=== PATIENT | female | born 1980 | race Two or more races ===

== ENCOUNTER 2017-08-02 15:23 | Observation (INO) | payer MEDICAID ==
[2017-08-02] MEDS ORDERED: Pantoprazole 40 MG Vial IVPUSH ONE (16:08)
[2017-08-02] MEDS ORDERED: Ondansetron 4 MG/2 ML SDV IVPUSH ONE (16:08)
[2017-08-02] MEDS ORDERED: Sodium Chloride 0.9% 1,000 ML IV ONE (16:08)
--- NOTE | 2017-08-02 16:10 | EDM.PDOC ---
ED HPI GENERAL MEDICAL PROBLEM - General Chief Complaint: Gastrointestinal Problem Stated Complaint: DON'T FEEL GOOD Time Seen by Provider: 08/02/17 16:10 Source of Information: Reports: Patient - History of Present Illness INITIAL COMMENTS - FREE TEXT/NARRATIVE: HISTORY AND PHYSICAL: History of present illness: [Patient presents with general malaise and loose stools since last night multiple loose watery diarrhea type stools denies blood or mucus in the stool No fever nausea vomiting chills sweats no chest pain shortness breath headache dizziness or palpitation no urine symptoms she had complained of some lightheaded/mild dizziness History of tubal ligation and cholecystectomy ] Review of systems: As per history of present illness and below otherwise all systems reviewed and negative. Past medical history: As per history of present illness and as reviewed below otherwise noncontributory. Surgical history: As per history of present illness and as reviewed below otherwise noncontributory. Social history: No reported history of drug or alcohol abuse. Family history: As per history of present illness and as reviewed below otherwise noncontributory. Physical exam: HEENT: Atraumatic, normocephalic, pupils reactive, negative for conjunctival pallor or scleral icterus, mucous membranes moist, throat clear, neck supple, nontender, trachea midline. Lungs: Clear to auscultation, breath sounds equal bilaterally, chest nontender. Heart: S1S2, regular, negative for clicks, rubs, or JVD. Abdomen: Soft, nondistended, tender in right upper quadrant as well as focus in right lower quadrant on deep palpation mild guarding no rebound Negative for masses or hepatosplenomegaly. Negative for costovertebral tenderness. Pelvis: Stable nontender. Genitourinary: Deferred. Rectal: Deferred. Extremities: Atraumatic, negative for cords or calf pain. Neurovascular unremarkable. Neuro: Awake, alert, oriented. Cranial nerves II through XII unremarkable. Cerebellum unremarkable. Motor and sensory unremarkable throughout. Exam nonfocal. Diagnostics: [CBC CMP UA hCG lipase lactic acid whole blood ]CT abdomen pelvis with contrast Therapeutics: [Normal saline bolus Zofran 8 mg IV Proton X 80 mg IV Zosyn 3.375 g IV I had considered ICU admission however Dr. Talavera is comfortable with the patient on the floor he will manage from your patient will be admitted further orders pending Dr. Talavera's evaluation ] Impression: [Hypotension Gastroenteritis Right lower quadrant pain Rule out sepsis] Definitive disposition and diagnosis as appropriate pending reevaluation and review of above. - Related Data Allergies Allergy/AdvReac Type Severity Reaction Status Date / Time No Known Allergies Allergy Verified 08/02/17 16:08 Home Meds: Home Meds . [No Known Home Meds] 08/02/17 [History] ED ROS GENERAL - Review of Systems Review Of Systems: ROS reveals no pertinent complaints other than HPI. ED EXAM, GENERAL - Physical Exam Exam: See Below Course - Vital Signs Last Recorded V/S: Last Vital Signs Temp 96.9 F 08/02/17 16:06 Pulse 75 08/02/17 16:06 Resp 18 08/02/17 16:06 BP 91/45 L 08/02/17 16:06 Pulse Ox 98 08/02/17 16:06 - Orders/Labs/Meds Orders: Active Orders 24 hr Category Date Time Status Abdomen Pelvis w Cont [CT] Stat Exams 08/02/17 16:17 Taken Chest 1V Frontal [CR] Stat Exams 08/02/17 18:27 Ordered CULTURE BLOOD [BC] Stat Lab 08/02/17 16:37 Received CULTURE BLOOD [BC] Stat Lab 08/02/17 16:52 Received CULTURE URINE [RM] Stat Lab 08/02/17 16:45 Received INFLUENZA A+B AG SCREEN [RM] Stat Lab 08/02/17 18:35 Received Blood Culture x2 Reflex Set [OM.PC] Stat Oth 08/02/17 16:13 Ordered Labs: Laboratory Tests 08/02/17 08/02/17 08/02/17 Range/Units 16:09 16:14 16:14 WBC 13.22 H (4.0-11.0) K/uL RBC 4.56 (4.30-5.90) M/uL Hgb 12.5 (12.0-16.0) g/dL Hct 38.1 (36.0-46.0) % MCV 83.6 (80.0-98.0) fL MCH 27.4 (27.0-32.0) pg MCHC 32.8 (31.0-37.0) g/dL RDW Std Deviation 42.1 (28.0-62.0) fl RDW Coeff of Thuy 14 (11.0-15.0) % Plt Count 404 H (150-400) K/uL MPV 9.30 (7.40-12.00) fL Neut % (Auto) 82.1 H (48.0-80.0) % Lymph % (Auto) 8.5 L (16.0-40.0) % [place] % (Auto) 7.6 (0.0-15.0) % Eos % (Auto) 1.7 (0.0-7.0) % Baso % (Auto) 0.1 (0.0-1.5) % Neut # (Auto) 10.9 H (1.4-5.7) K/uL Lymph # (Auto) 1.1 (0.6-2.4) K/uL [place] # (Auto) 1.0 H (0.0-0.8) K/uL Eos # (Auto) 0.2 (0.0-0.7) K/uL Baso # (Auto) 0.0 (0.0-0.1) K/uL Nucleated RBC % 0.0 /100WBC Nucleated RBCs # 0 K/uL Lactate 0.8 (0.20-2.00) mmol/L Sodium 138 (136-146) mmol/L Potassium 4.3 (3.5-5.1) mmol/L Chloride 106 (98-110) mmol/L Carbon Dioxide 21 (21-31) mmol/L BUN 14 (6.0-23.0) mg/dL Creatinine 0.8 (0.6-1.5) mg/dL Est Cr Clr Drug Dosing TNP Estimated GFR (MDRD) > 60.0 ml/min Glucose 110 (60-110) mg/dL Calcium 9.1 (8.8-10.8) mg/dL Total Bilirubin 0.6 (0.1-1.5) mg/dL AST 16 (5-40) IU/L ALT 19 (8-54) IU/L Alkaline Phosphatase 125 (40-150) Total Protein 7.8 (6.0-8.0) g/dL Albumin 4.0 (3.5-5.0) g/dL Globulin 3.8 H (2.0-3.5) g/dL Albumin/Globulin Ratio 1.1 L (1.3-2.8) Lipase 23 (7-80) U/L Urine Color Urine Appearance Urine pH (5.0-8.0) Ur Specific [place] (1.001-1.035) Urine Protein (NEGATIVE) mg/dL Urine Glucose (UA) (NEGATIVE) mg/dL Urine Ketones (NEGATIVE) mg/dL Urine Occult Blood (NEGATIVE) Urine Nitrite (NEGATIVE) Urine Bilirubin (NEGATIVE) Urine Urobilinogen (<2.0) EU/dL Ur Leukocyte Esterase (NEGATIVE) Urine RBC (0-2/HPF) Urine WBC (0-5/HPF) Ur Epithelial Cells (NONE-FEW) Urine Bacteria (NEGATIVE) Urine Mucus (NONE-MOD) Urine HCG, Qual (NEGATIVE) 08/02/17 08/02/17 Range/Units 16:45 16:45 WBC (4.0-11.0) K/uL RBC (4.30-5.90) M/uL Hgb (12.0-16.0) g/dL Hct (36.0-46.0) % MCV (80.0-98.0) fL MCH (27.0-32.0) pg MCHC (31.0-37.0) g/dL RDW Std Deviation (28.0-62.0) fl RDW Coeff of Thuy (11.0-15.0) % Plt Count (150-400) K/uL MPV (7.40-12.00) fL Neut % (Auto) (48.0-80.0) % Lymph % (Auto) (16.0-40.0) % [place] % (Auto) (0.0-15.0) % Eos % (Auto) (0.0-7.0) % Baso % (Auto) (0.0-1.5) % Neut # (Auto) (1.4-5.7) K/uL Lymph # (Auto) (0.6-2.4) K/uL [place] # (Auto) (0.0-0.8) K/uL Eos # (Auto) (0.0-0.7) K/uL Baso # (Auto) (0.0-0.1) K/uL Nucleated RBC % /100WBC Nucleated RBCs # K/uL Lactate (0.20-2.00) mmol/L Sodium (136-146) mmol/L Potassium (3.5-5.1) mmol/L Chloride (98-110) mmol/L Carbon Dioxide (21-31) mmol/L BUN (6.0-23.0) mg/dL Creatinine (0.6-1.5) mg/dL Est Cr Clr Drug Dosing Estimated GFR (MDRD) ml/min Glucose (60-110) mg/dL Calcium (8.8-10.8) mg/dL Total Bilirubin (0.1-1.5) mg/dL AST (5-40) IU/L ALT (8-54) IU/L Alkaline Phosphatase (40-150) Total Protein (6.0-8.0) g/dL Albumin (3.5-5.0) g/dL Globulin (2.0-3.5) g/dL Albumin/Globulin Ratio (1.3-2.8) Lipase (7-80) U/L Urine Color YELLOW Urine Appearance SLT CLOUDY Urine pH 5.5 (5.0-8.0) Ur Specific [place] >= 1.030 (1.001-1.035) Urine Protein TRACE (NEGATIVE) mg/dL Urine Glucose (UA) NEGATIVE (NEGATIVE) mg/dL Urine Ketones NEGATIVE (NEGATIVE) mg/dL Urine Occult Blood NEGATIVE (NEGATIVE) Urine Nitrite NEGATIVE (NEGATIVE) Urine Bilirubin NEGATIVE (NEGATIVE) Urine Urobilinogen 0.2 (<2.0) EU/dL Ur Leukocyte Esterase NEGATIVE (NEGATIVE) Urine RBC 0-2 (0-2/HPF) Urine WBC 6-9 (0-5/HPF) Ur Epithelial Cells MANY (NONE-FEW) Urine Bacteria RARE (NEGATIVE) Urine Mucus LIGHT (NONE-MOD) Urine HCG, Qual NEGATIVE (NEGATIVE) Meds: Medications Discontinued Medications Generic Name Dose Route Start Last Admin Trade Name Freq PRN Reason Stop Dose Admin Sodium Chloride 1,000 mls @ 999 mls/hr 08/02/17 16:08 08/02/17 17:15 Normal Saline IV 08/02/17 17:08 999 mls/hr STAT ONE Administration Piperacillin Sod/Tazobactam 50 mls @ 100 mls/hr 08/02/17 16:17 08/02/17 18:23 Sod 3.375 gm/ Sodium Chloride IV 08/02/17 16:46 100 mls/hr ONETIME ONE Administration Iopamidol 86 ml 08/02/17 18:15 08/02/17 18:16 Isovue Multipack-370 (76%) IVPUSH 08/02/17 18:16 86 ml ONETIME STA Administration Ondansetron HCl 8 mg 08/02/17 16:08 08/02/17 17:27 Zofran IVPUSH 08/02/17 16:09 8 mg ONETIME ONE Administration Pantoprazole Sodium 80 mg 08/02/17 16:08 08/02/17 17:27 Protonix Iv IVPUSH 08/02/17 16:09 80 mg .BOLUS ONE Administration Departure - Departure Time of Disposition: 18:41 Disposition: Home, Self-Care 01 Condition: Poor Clinical Impression: Hypotension, Gastroenteritis - Discharge Information Referrals: PCP,None [Primary Care Provider] - Forms: ED Department Discharge - My Orders Last 24 Hours: My Active Orders 08/02/17 16:13 Blood Culture x2 Reflex Set [OM.PC] Stat 08/02/17 16:17 Abdomen Pelvis w Cont [CT] Stat 08/02/17 16:37 CULTURE BLOOD [BC] Stat 08/02/17 16:45 CULTURE URINE [RM] Stat 08/02/17 16:52 CULTURE BLOOD [BC] Stat 08/02/17 18:27 Chest 1V Frontal [CR] Stat 08/02/17 18:35 INFLUENZA A+B AG SCREEN [RM] Stat - Assessment/Plan Last 24 Hours: My Active Orders 08/02/17 16:13 Blood Culture x2 Reflex Set [OM.PC] Stat 08/02/17 16:17 Abdomen Pelvis w Cont [CT] Stat 08/02/17 16:37 CULTURE BLOOD [BC] Stat 08/02/17 16:45 CULTURE URINE [RM] Stat 08/02/17 16:52 CULTURE BLOOD [BC] Stat 08/02/17 18:27 Chest 1V Frontal [CR] Stat 08/02/17 18:35 INFLUENZA A+B AG SCREEN [RM] Stat
[2017-08-02] MEDS ORDERED: Piperacillin/Tazobactam 3.375 GM in Sodium Chloride 0.9% 50 ML IV ONE (16:17)
[2017-08-02 17:06] LABS: CHLORIDE,CL 106 mmol/L (98-110); SODIUM,NA 138 mmol/L (136-146)
[2017-08-02] MEDS ORDERED: Iopamidol 755 MG/ML 500 ML Multipack Bottle IVPUSH STA (18:15)
--- NOTE | 2017-08-02 20:01 | PCM.HP ---
H&P History of Present Illness - General Date of Service: 08/02/17 Admit Problem/Dx: Admission Diagnosis/Problem Admission Diagnosis/Problem Hypotension Source of Information: Patient History Limitations: Reports: No Limitations - History of Present Illness Initial Comments - Free Text/Narative: 37-year-old female presenting to the emergency department with chief complaint of nausea and diarrhea 1 day. Patient states that last evening she began to feel somewhat nauseous and started to have some loose stools. This continued throughout the day as she reports multiple episodes of diarrhea without blood. She states that she has also been nauseous but denies any vomiting. She has had some associated chills but reports no significant fevers. States that on her way to [facility] today she continued to feel ill so had her friends take her to the emergency department for further evaluation. She currently denies any chest pain, palpitations, shortness of breath, syncopal episodes, or focal neurologic deficits. She does have some mild epigastric tenderness. She does have a history of tubal ligation and cholecystectomy. She currently takes no medications and has recently moved to [place] from [facility]. Reports no recent antibiotic use. She has no established PCP. She denies any allergies. Emergency department: Patient was found to be hypotensive with a blood pressure of 91/45 and was given a total of 2 L normal saline with some resolution of her blood pressure to 112/69. She was afebrile. CBC revealed mild leukocytosis at 13.2 K, normal lactate, and unremarkable CMP. UA was negative for nitrate and leukocyte esterase. Influenza was negative. Chest x-ray was unremarkable. 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 There was also an incidental finding of nodular infiltrate right middle lobe and left lower lobe which was recommended for a follow-up CT at some point in time in the future. As mentioned above chest x- ray was unremarkable. She was given 8 mg Zofran, 80 mg IV push Protonix and 3.375 g of Zosyn. Patient was admitted for hypotension. - Related Data Allergies/Adverse Reactions: Allergies Allergy/AdvReac Type Severity Reaction Status Date / Time No Known Allergies Allergy Verified 08/02/17 16:08 Home Medications: Home Meds . [No Known Home Meds] 08/02/17 [History] Past Medical History - Past Surgical History GI Surgical History: Reports: Cholecystectomy Female Surgical History: Reports: Tubal Ligation Social & Family History - Family History Family Medical History: Noncontributory - Tobacco Use Smoking Status *Q: Current Every Day Smoker Years of Tobacco use: 15 Packs/Tins Daily: 0.5 - Recreational Drug Use Recreational Drug Use: Yes Drug Use in Last 12 Months: Yes Recreational Drug Type: Reports: Marijuana/Hashish Recreational Drug Use Frequency: Daily H&P Review of Systems - Review of Systems: Review Of Systems: See Below General: Reports: Chills, Malaise, Weakness, Fatigue. Denies: Fever HEENT: Denies: Dysphasia, Headaches, Sinus Congestion, Sore Throat Pulmonary: Reports: Cough. Denies: Shortness of Breath, Wheezing Cardiovascular: Denies: Chest Pain, Palpitations, Edema, Lightheadedness Gastrointestinal: Reports: Abdominal Pain, Diarrhea, Nausea. Denies: Black Stool, Bloody Stool, Constipation, Vomiting Genitourinary: Denies: Dysuria, Hematuria Musculoskeletal: Denies: Neck Pain, Leg Pain Skin: Denies: Cyanosis Psychiatric: Denies: Confusion Neurological: Denies: Confusion, Dizziness, Headache Hematologic/Lymphatic: Denies: Anemia Immunologic: Denies: Anaphylaxis Exam - Exam Exam: See Below - Vital Signs Vital Signs: Last Vital Signs Temp 98.8 F 08/02/17 19:38 Pulse 79 08/02/17 19:38 Resp 16 08/02/17 19:38 BP 112/69 08/02/17 19:38 Pulse Ox 97 08/02/17 19:38 - Exam Quality Assessment: DVT Prophylaxis General: Alert, Oriented, Cooperative HEENT: Conjunctiva Clear, EACs Clear, EOMI, Hearing Intact, Mucosa Moist & [place] , Nares Patent, Normal Nasal Septum, Posterior Pharynx Clear, PERRLA Neck: Supple, Trachea Midline, 2 Lungs: Clear to Auscultation, Normal Respiratory Effort Cardiovascular: Regular Rate, Regular Rhythm GI/Abdominal Exam: Normal Bowel Sounds, Soft, Non-Tender, No Organomegaly, No Distention, No Mass, Tender (epigastric) (Female) Exam: Deferred Rectal (Female) Exam: Deferred Back Exam: Normal Inspection Extremities: Normal Inspection, Non-Tender, No Pedal Edema, Normal Capillary Refill Peripheral Pulses: 2+: Radial (L), Radial (R), Posterior Tibial (L), Posterior Tibial (R), Dorsalis Pedis (L), Dorsalis Pedis (R) Skin: Warm, Dry, Intact Neurological: Cranial Nerves Intact Neuro Extensive - Mental Status: Alert, Oriented x3, Normal Mood/Affect, Normal Cognition Neuro Extensive - Motor, Sensory, Reflexes: CN II-XII Intact Psychiatric: Alert, Normal Affect, Normal Mood - Patient Data Result Diagrams: 08/02/17 16:14 08/02/17 16:14 *Q Meaningful Use (ADM) - VTE *Q VTE Criteria *Q: - Stroke *Q Stroke Criteria *Q: - AMI *Q AMI Criteria *Q: - Problem List (1) Diarrhea SNOMED Code(s): 46409958 ICD Code: R19.7 - DIARRHEA, UNSPECIFIED Status: Acute Priority: High Current Visit: Yes Qualifiers: Diarrhea type: unspecified type Qualified Code(s): R19.7 - Diarrhea, unspecified (2) Nausea alone SNOMED Code(s): 003411510 ICD Code: R11.0 - NAUSEA Status: Acute Priority: High Current Visit: Yes (3) Gastroenteritis SNOMED Code(s): 27021794 ICD Code: K52.9 - NONINFECTIVE GASTROENTERITIS AND COLITIS, UNSPECIFIED Status: Suspected Priority: High Current Visit: Yes (4) Hypotension SNOMED Code(s): 33008575 ICD Code: I95.9 - HYPOTENSION, UNSPECIFIED Status: Resolved Priority: High Current Visit: Yes Qualifiers: Hypotension type: unspecified hypotension type Qualified Code(s): I95.9 - Hypotension, unspecified Problem List Initiated/Reviewed/Updated: Yes Assessment/Plan Comment:: 37-year-old female admitted 08/02/17 for hypotension with associated nausea and diarrhea with no significant past medical history. Hypotension: Patient has responded to IV fluid resuscitation. We will continue IVF resus with LR 175 mL per hour and monitor closely. Blood cultures were taken and are pending. She was given Zosyn in the ER. I suspect hypotension secondary to her multiple episodes of diarrhea and is more of a volume depletion. Will cover her with Levaquin secondary to CT findings however chest x -ray was negative for pneumonia. Suspect this is secondary to gastroenteritis. Mild leukocytosis most likely stress reaction as patient has been afebrile and no other systemic symptoms. Gastroenteritis/nausea/diarrhea: Most likely diagnosis secondary to her symptoms. Influenza negative. Will use Zofran and Imodium for nausea and diarrhea. She does have some epigastric tenderness most likely from this gastroenteritis. She did receive 80 mg of Protonix in the emergency department. Will continue 40 mg Protonix IV every 24 as well as give a GI cocktail. VTE: SCD, Lovenox Dispo: 1-2 days pending
[2017-08-02] MEDS ORDERED: Morphine 2 MG/ML Syringe IVPUSH PRN (20:05)
[2017-08-02] MEDS ORDERED: Ondansetron 4 MG/2 ML SDV IVPUSH PRN (20:05)
[2017-08-02] MEDS ORDERED: Alum Hydrox/Mag Hydrox/Simeth 15 ML, Metoclopramide 5 MG, Lidocaine 2% 5 ML PO ONE ×3 (20:05)
[2017-08-02] MEDS ORDERED: Ondansetron 4 MG Tab.DIS PO PRN (20:05)
[2017-08-02] MEDS ORDERED: FLU Vacc QS 2017-18 (36mos UP)/PF 60 MCG/0.5 ML Syringe IM ONE (20:45)
[2017-08-02] MEDS: Enoxaparin 40 MG/0.4 ML Syringe SUBCUT SCH (20:51)
[2017-08-02] MEDS: Levofloxacin/Dextrose 5%-Water 750 MG in Premix Bag 1 BAG IV SCH (20:52)
[2017-08-02] MEDS: Acetaminophen 325 MG Tab PO PRN (21:39)
[2017-08-02] MEDS: Temazepam 15 MG Cap PO PRN (21:40)
[2017-08-02] MEDS: Lactated Ringers 1,000 ML IV SCH (23:55)
[2017-08-03] MEDS: Lactated Ringers 1,000 ML IV SCH ×3 (06:06→17:47)
[2017-08-03 07:02] LABS: CHLORIDE,CL 110 mmol/L (98-110); SODIUM,NA 137 mmol/L (136-146)
--- NOTE | 2017-08-03 07:41 | PCM.PN ---
- General Info Date of Service: 08/03/17 Admission Dx/Problem (Free Text): Admission Diagnosis/Problem Admission Diagnosis/Problem Hypotension Subjective Update: Feeling better this morning but still very tired and having occasional diarrhea overnight but much improved. No other complaints. Functional Status: Reports: Pain Controlled, Tolerating Diet, Ambulating, Urinating - Review of Systems General: Reports: Fatigue, Malaise. Denies: Fever, Weakness, Chills HEENT: Denies: Dysphasia, Headaches, Sore Throat, Visual Changes Pulmonary: Denies: Shortness of Breath, Pleuritic Chest Pain, Cough, Sputum Cardiovascular: Denies: Chest Pain, Palpitations, Edema Gastrointestinal: Reports: Diarrhea. Denies: Abdominal Pain, Nausea, Vomiting Genitourinary: Denies: Dysuria, Hematuria Musculoskeletal: Denies: Neck Pain, Leg Pain Skin: Denies: Cyanosis Neurological: Denies: Confusion, Dizziness, Headache Psychiatric: Denies: Confusion - Patient Data Vitals - Most Recent: Last Vital Signs Temp 98.5 F 08/03/17 04:00 Pulse 77 08/03/17 04:00 Resp 16 08/03/17 04:00 BP 103/55 L 08/03/17 04:00 Pulse Ox 100 08/03/17 04:00 Weight - Most Recent: 81.902 kg I&O - Last 24 Hours: Intake & Output 08/02/17 08/03/17 08/03/17 22:59 06:59 14:59 Intake Total 150 2334 Output Total 1100 Balance 150 1234 Lab Results Last 24 Hours: Laboratory Results - last 24 hr 08/03/17 08/03/17 Range/Units 06:15 06:15 WBC 7.54 (4.0-11.0) K/uL RBC 3.72 L (4.30-5.90) M/uL Hgb 9.9 L (12.0-16.0) g/dL Hct 31.2 L (36.0-46.0) % MCV 83.9 (80.0-98.0) fL MCH 26.6 L (27.0-32.0) pg MCHC 31.7 (31.0-37.0) g/dL RDW Std Deviation 42.9 (28.0-62.0) fl RDW Coeff of Thuy 14 (11.0-15.0) % Plt Count 361 (150-400) K/uL MPV 9.60 (7.40-12.00) fL Neut % (Auto) 69.6 (48.0-80.0) % Lymph % (Auto) 17.5 (16.0-40.0) % [place] % (Auto) 10.1 (0.0-15.0) % Eos % (Auto) 2.7 (0.0-7.0) % Baso % (Auto) 0.1 (0.0-1.5) % Neut # (Auto) 5.3 (1.4-5.7) K/uL Lymph # (Auto) 1.3 (0.6-2.4) K/uL [facility] # (Auto) 0.8 (0.0-0.8) K/uL Eos # (Auto) 0.2 (0.0-0.7) K/uL Baso # (Auto) 0.0 (0.0-0.1) K/uL Nucleated RBC % 0.0 /100WBC Nucleated RBCs # 0 K/uL Sodium 137 (136-146) mmol/L Potassium 4.0 (3.5-5.1) mmol/L Chloride 110 (98-110) mmol/L Carbon Dioxide 20 L (21-31) mmol/L BUN 9 (6.0-23.0) mg/dL Creatinine 0.7 (0.6-1.5) mg/dL Est Cr Clr Drug Dosing 104.01 mL/min Estimated GFR (MDRD) > 60.0 ml/min Glucose 106 (60-110) mg/dL Calcium 8.0 L (8.8-10.8) mg/dL Magnesium 1.2 L (1.5-2.3) mEq/L Total Bilirubin 0.4 (0.1-1.5) mg/dL AST 14 (5-40) IU/L ALT 15 (8-54) IU/L Alkaline Phosphatase 107 (40-150) Total Protein 5.9 L (6.0-8.0) g/dL Albumin 3.1 L (3.5-5.0) g/dL Globulin 2.8 (2.0-3.5) g/dL Albumin/Globulin Ratio 1.1 L (1.3-2.8) Amol Results Last 24 Hours: Microbiology 02/23/18 21:10 Clostridium difficile Toxin A&B (M) - Final Stool / Feces Negative for C.Diff Toxin/AG 08/02/17 21:10 Campylobacter Antigen Assay - Final Stool / Feces Positive Campylobacter Ag Med Orders - Current: Current Medications Acetaminophen (Tylenol) 650 mg PO Q4H PRN PRN Reason: Pain (Mild 1-3)/fever Last Admin: 08/02/17 21:39 Dose: 650 mg Enoxaparin Sodium (Lovenox) 40 mg SUBCUT DAILY [facility] Last Admin: 08/02/17 20:51 Dose: 40 mg Lactated Ringer's (Ringers, Lactated) 1,000 mls @ 175 mls/hr IV ASDIRECTED [facility] Last Admin: 08/03/17 06:06 Dose: 175 mls/hr Levofloxacin/Dextrose 750 mg/ (Premix) 150 mls @ 100 mls/hr IV Q24H [facility] Last Admin: 08/02/17 20:52 Dose: 100 mls/hr Loperamide HCl (Imodium) 2 mg PO Q4H PRN PRN Reason: Diarrhea Morphine Sulfate (Morphine) 2 mg IVPUSH Q2H PRN PRN Reason: Pain (severe 7-10) Stop: 08/03/17 20:06 Ondansetron HCl (Zofran Odt) 4 mg PO Q4H PRN PRN Reason: nausea, able to take PO Ondansetron HCl (Zofran) 4 mg IVPUSH Q4H PRN PRN Reason: Nausea Pantoprazole Sodium (Protonix Iv) 40 mg IVPUSH Q24H [facility] Temazepam (Restoril) 15 mg PO BEDTIME PRN PRN Reason: Sleep Last Admin: 08/02/17 21:40 Dose: 15 mg Discontinued Medications Al Hydroxide/Mg Hydroxide 15 ml/ Metoclopramide HCl 5 mg/Lidocaine HCl 5 ml 0 ml PO ONETIME ONE Stop: 08/02/17 20:06 Last Admin: 08/02/17 21:38 Dose: 1 each Sodium Chloride (Normal Saline) 1,000 mls @ 999 mls/hr IV STAT ONE Stop: 08/02/17 17:08 Last Admin: 08/02/17 17:15 Dose: 999 mls/hr Piperacillin Sod/Tazobactam (Sod 3.375 gm/ Sodium Chloride) 50 mls @ 100 mls/ hr IV ONETIME ONE Stop: 08/02/17 16:46 Last Admin: 08/02/17 18:23 Dose: 100 mls/hr Influenza Virus Vaccine (Pharmacy To Dose - Influenza Vaccine) 1 each IM ONETIME ONE Stop: 08/02/17 20:34 Influenza Virus Vaccine (Fluarix Quad [id number]) 60 mcg IM .ONCE ONE Stop: 08/02/17 20:46 Iopamidol (Isovue Multipack-370 (76%)) 86 ml IVPUSH ONETIME STA Stop: 08/02/17 18:16 Last Admin: 08/02/17 18:16 Dose: 86 ml Ondansetron HCl (Zofran) 8 mg IVPUSH ONETIME ONE Stop: 08/02/17 16:09 Last Admin: 08/02/17 17:27 Dose: 8 mg Pantoprazole Sodium (Protonix Iv) 80 mg IVPUSH .BOLUS ONE Stop: 08/02/17 16:09 Last Admin: 08/02/17 17:27 Dose: 80 mg - Exam Quality Assessment: DVT Prophylaxis General: Alert, Oriented, Cooperative, No Acute Distress HEENT: Pupils Equal, Pupils Reactive, EOMI, Mucous Membr. Moist/[place] Neck: Supple, Trachea Midline, No JVD Lungs: Clear to Auscultation, Normal Respiratory Effort Cardiovascular: Regular Rate, Regular Rhythm GI/Abdominal Exam: Normal Bowel Sounds, Soft, Non-Tender, No Organomegaly, No Distention (Female) Exam: Deferred Back Exam: Normal Inspection Extremities: Normal Inspection, Non-Tender, No Pedal Edema, Normal Capillary Refill Peripheral Pulses: 2+: Radial (L), Radial (R), Posterior Tibial (L), Posterior Tibial (R), Dorsalis Pedis (L), Dorsalis Pedis (R) Skin: Warm, Dry, Intact Neurological: No New Focal Deficit Psy/Mental Status: Alert, Normal Affect, Normal Mood - Problem List & Annotations (1) Diarrhea SNOMED Code(s): 69395593 Code(s): R19.7 - DIARRHEA, UNSPECIFIED Status: Acute Priority: High Current Visit: Yes Qualifiers: Diarrhea type: infectious Qualified Code(s): A09 - Infectious gastroenteritis and colitis, unspecified (2) Nausea alone SNOMED Code(s): 744676347 Code(s): R11.0 - NAUSEA Status: Resolved Priority: Low Current Visit: Yes (3) Gastroenteritis SNOMED Code(s): 57822009 Code(s): K52.9 - NONINFECTIVE GASTROENTERITIS AND COLITIS, UNSPECIFIED Status: Suspected Priority: High Current Visit: Yes (4) Hypotension SNOMED Code(s): 70008228 Code(s): I95.9 - HYPOTENSION, UNSPECIFIED Status: Resolved Priority: High Current Visit: Yes Qualifiers: Hypotension type: unspecified hypotension type Qualified Code(s): I95.9 - Hypotension, unspecified (5) Campylobacter enteritis SNOMED Code(s): 97765613 Code(s): A04.5 - CAMPYLOBACTER ENTERITIS Status: Acute Priority: High Current Visit: Yes - Problem List Review Problem List Initiated/Reviewed/Updated: Yes - My Orders Last 24 Hours: My Active Orders 08/02/17 20:00 Levofloxacin/Dextrose 5%-Water [Levaquin in D5W 750 MG/150 ML] 750 mg Premix Bag 1 bag IV Q24H 08/02/17 20:02 Oxygen Therapy [RC] PRN Up With Assistance [RC] ASDIRECTED VTE/DVT Education [RC] PER UNIT ROUTINE Vital Signs [RC] Q4H Resuscitation Status Routine 08/02/17 20:03 Intake and Output [RC] QSHIFT Sequential Compression Device [OM.PC] Per Unit Routine 08/02/17 20:04 Antiembolic Devices [RC] PER UNIT ROUTINE 08/02/17 20:05 Patient Status [ADT] Routine Oxygen Therapy [RC] PRN VTE/DVT Education [RC] PER UNIT ROUTINE Vital Signs [RC] Q4H Acetaminophen [Tylenol] 650 mg PO Q4H PRN Loperamide [Imodium] 2 mg PO Q4H PRN Morphine 2 mg IVPUSH Q2H PRN Ondansetron [Zofran ODT] 4 mg PO Q4H PRN Ondansetron [Zofran] 4 mg IVPUSH Q4H PRN Temazepam [Restoril] 15 mg PO BEDTIME PRN 08/02/17 20:15 Enoxaparin [Lovenox] 40 mg SUBCUT DAILY Lactated Ringers [Ringers, Lactated] 1,000 ml IV ASDIRECTED 08/02/17 20:33 Influenza Vaccine Charge [RC] .DISCHARGE 08/02/17 21:10 CULTURE STOOL + CAMPY+SHIGATOX [RM] Stat 08/02/17 Dinner Regular Diet [DIET] 08/03/17 16:00 Pantoprazole [ProTONIX IV] 40 mg IVPUSH Q24H 08/04/17 05:11 CBC WITH AUTO DIFF [HEME] AM COMPREHENSIVE METABOLIC PN,CMP [CHEM] AM 08/05/17 05:11 CBC WITH AUTO DIFF [HEME] AM COMPREHENSIVE METABOLIC PN,CMP [CHEM] AM - Plan Plan:: 37-year-old female admitted 08/02/17 for hypotension with associated nausea and diarrhea with no significant past medical history. Hypotension: Resolved but still having some diarrhea will cont. LR at 175 until taking in PO better with less diarrhea. Blood cultures pending. Did receive one dose of Zosyn in ED. Camplobacter enteritis: Positive stool for camp. Did start Levaquin yesterday before results. Will cont. at 750mg for minimum of 3 days of treatment secondary to severity of illness causing hypotension. Will cont. Zofran and Imodium for nausea and diarrhea. Cont. Protonix for mild epigastric tenderness. Leukocytosis resolved. Patient states that she ate "chicken" the other night at home that she did not think was "good". No other people ate, only here. VTE: SCD, Lovenox Dispo: 1-2 days pending
[2017-08-03] MEDS ORDERED: Magnesium Sulfate/Water 4 GM in Premix Bag 1 BAG IV ONE (07:42)
[2017-08-03] MEDS: Enoxaparin 40 MG/0.4 ML Syringe SUBCUT SCH (08:13)
[2017-08-03] MEDS ORDERED: Pantoprazole 40 MG Vial IVPUSH SCH (16:00)
[2017-08-03] MEDS: Levofloxacin/Dextrose 5%-Water 750 MG in Premix Bag 1 BAG IV SCH (20:24)
[2017-08-03] MEDS: Loperamide 2 MG Cap PO PRN (20:25)
[2017-08-03] MEDS: Temazepam 15 MG Cap PO PRN (23:49)
[2017-08-04] MEDS: Lactated Ringers 1,000 ML IV SCH (02:28)
[2017-08-04] MEDS: Acetaminophen 325 MG Tab PO PRN (04:29)
[2017-08-04 07:36] LABS: CHLORIDE,CL 109 mmol/L (98-110); SODIUM,NA 141 mmol/L (136-146)
[2017-08-04] MEDS: Enoxaparin 40 MG/0.4 ML Syringe SUBCUT SCH (09:12)
--- NOTE | 2017-08-04 09:47 | PCM.DCSUM1 ---
Discharge Summary - Hospital Course HPI Initial Comments: 37-year-old female admitted 08/02/17 for hypotension with associated nausea and diarrhea found to be positive for Camplobacter Enteritis with no significant past medical history. Brief History: Patient stated that evening before admission she began to feel somewhat nauseous and started to have some loose stools. This continued throughout the day as she reports multiple episodes of diarrhea without blood. She stated that she had also been nauseous but denied any vomiting. She had some associated chills but reported no significant fevers. Stated that on her way to [facility]] on day of admission she continued to feel ill so had her friends take her to the emergency department for further evaluation. On initial presentation she denied any chest pain, palpitations, shortness of breath, syncopal episodes, or focal neurologic deficits. She did have some mild epigastric tenderness. She did have a history of tubal ligation and cholecystectomy. She currently takes no medications and has recently moved to [place] from [facility]. Reported no recent antibiotic use. She has no established PCP. She denied any allergies. - Discharge Data Discharge Date: 08/04/17 Discharge Disposition: Home, Self-Care 01 Condition: Good - Discharge Diagnosis/Problem(s) (1) Diarrhea SNOMED Code(s): 92863756 ICD Code: R19.7 - DIARRHEA, UNSPECIFIED Status: Resolved Priority: High Qualifiers: Diarrhea type: infectious Qualified Code(s): A09 - Infectious gastroenteritis and colitis, unspecified (2) Nausea alone SNOMED Code(s): 896007679 ICD Code: R11.0 - NAUSEA Status: Resolved Priority: Low (3) Gastroenteritis SNOMED Code(s): 75739367 ICD Code: K52.9 - NONINFECTIVE GASTROENTERITIS AND COLITIS, UNSPECIFIED Status: Suspected Priority: Low (4) Hypotension SNOMED Code(s): 50685334 ICD Code: I95.9 - HYPOTENSION, UNSPECIFIED Status: Resolved Priority: High Qualifiers: Hypotension type: unspecified hypotension type Qualified Code(s): I95.9 - Hypotension, unspecified (5) Campylobacter enteritis SNOMED Code(s): 49071539 ICD Code: A04.5 - CAMPYLOBACTER ENTERITIS Status: Acute Priority: High - Patient Instructions Diet: GI Soft/Low Residue/Low Fiber Activity: Rest and Relax Today Driving: Do Not Drive Showering/Bathing: May Shower Notify Provider of: Fever, Increased Pain, Nausea and/or Vomiting - Discharge Plan Prescriptions/Med Rec: Levofloxacin [Levaquin] 750 mg PO DAILY #1 tab Home Medications: Home Meds Levofloxacin [Levaquin] 750 mg PO DAILY #1 tab 08/04/17 [Rx] Patient Handouts: Hypotension, [id number], Soft-Food Meal Plan, Levofloxacin tablets, Low-Fiber Diet Referrals: Harinder Méndez MD [Physician] - (Please call for an appointment within this week. ) - Discharge Summary/Plan Comment DC Time >30 min.: Yes Discharge Summary/Plan Comment: 37-year-old female admitted 08/02/17 for hypotension with associated nausea and diarrhea found to be positive for Camplobacter Enteritis with no significant past medical history. Patient stated that evening before admission she began to feel somewhat nauseous and started to have some loose stools. This continued throughout the day as she reports multiple episodes of diarrhea without blood. She stated that she had also been nauseous but denied any vomiting. She had some associated chills but reported no significant fevers. Stated that on her way to [facility]3] on day of admission she continued to feel ill so had her friends take her to the emergency department for further evaluation. On initial presentation she denied any chest pain, palpitations, shortness of breath, syncopal episodes, or focal neurologic deficits. She did have some mild epigastric tenderness. She did have a history of tubal ligation and cholecystectomy. She currently takes no medications and has recently moved to [place] from [facility]. Reported no recent antibiotic use. She has no established PCP. She denied any allergies. Emergency department: Patient was found to be hypotensive with a blood pressure of 91/45 and was given a total of 2 L normal saline with some resolution of her blood pressure to 112/69. She was afebrile. CBC revealed mild leukocytosis at 13.2 K, normal lactate, and unremarkable CMP. UA was negative for nitrate and leukocyte esterase. Influenza was negative. Chest x-ray was unremarkable. 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 There was also an incidental finding of nodular infiltrate right middle lobe and left lower lobe which was recommended for a follow-up CT at some point in time in the future. As mentioned above chest x- ray was unremarkable. She was given 8 mg Zofran, 80 mg IV push Protonix and 3.375 g of Zosyn. Patient was admitted for hypotension. Patient was started on Levaquin on admission and was found to be positive for Camplobacter enteritis. She was continued on Levaquin 750 mg while inpatient and IV fluid resuscitated. On third day of admission diarrhea completely resolved and the patient was discharged in good condition with a prescription for Levaquin 1 day to complete a full 3 day course of antibiotics for her Campylobacter enteritis. She was also scheduled for a follow-up appointment with a local primary care physician. She was instructed to return in the emergency department if she had any new or worsening symptoms. - General Info Date of Service: 08/04/17 Admission Dx/Problem (Free Text: Admission Diagnosis/Problem Admission Diagnosis/Problem Hypotension Subjective Update: Patient feeling much improved. No more diarrhea. Denies any recent nausea. No fever or chills. Would like to be discharged today. Functional Status: Reports: Pain Controlled, Tolerating Diet, Ambulating, Urinating - Review of Systems General: Denies: Fever, Weakness, Fatigue, Malaise, Chills HEENT: Denies: Headaches, Visual Changes Pulmonary: Denies: Shortness of Breath, Hemoptysis Cardiovascular: Denies: Chest Pain, Palpitations, Edema Gastrointestinal: Denies: Abdominal Pain, Constipation, Diarrhea, Nausea Genitourinary: Denies: Dysuria, Hematuria Musculoskeletal: Denies: Neck Pain, Leg Pain Skin: Denies: Cyanosis Neurological: Denies: Confusion, Dizziness, Headache Psychiatric: Denies: Confusion - Patient Data Vitals - Most Recent: Last Vital Signs Temp 99.1 F 08/04/17 08:00 Pulse 89 08/04/17 08:00 Resp 18 08/04/17 08:00 BP 116/69 08/04/17 08:00 Pulse Ox 100 08/04/17 08:00 Weight - Most Recent: 81.902 kg I&O - Last 24 hours: Intake & Output 08/03/17 08/04/17 08/04/17 22:59 06:59 14:59 Intake Total 1000 Balance 1000 Lab Results - Last 24 hrs: Laboratory Results - last 24 hr 08/04/17 08/04/17 Range/Units 06:49 06:49 WBC 5.90 (4.0-11.0) K/uL RBC 3.62 L (4.30-5.90) M/uL Hgb 9.7 L (12.0-16.0) g/dL Hct 30.2 L (36.0-46.0) % MCV 83.4 (80.0-98.0) fL MCH 26.8 L (27.0-32.0) pg MCHC 32.1 (31.0-37.0) g/dL RDW Std Deviation 43.0 (28.0-62.0) fl RDW Coeff of Thuy 14 (11.0-15.0) % Plt Count 350 (150-400) K/uL MPV 9.30 (7.40-12.00) fL Neut % (Auto) 50.9 (48.0-80.0) % Lymph % (Auto) 31.9 (16.0-40.0) % Webb % (Auto) 13.9 (0.0-15.0) % Eos % (Auto) 3.1 (0.0-7.0) % Baso % (Auto) 0.2 (0.0-1.5) % Neut # (Auto) 3.0 (1.4-5.7) K/uL Lymph # (Auto) 1.9 (0.6-2.4) K/uL Webb # (Auto) 0.8 (0.0-0.8) K/uL Eos # (Auto) 0.2 (0.0-0.7) K/uL Baso # (Auto) 0.0 (0.0-0.1) K/uL Nucleated RBC % 0.0 /100WBC Nucleated RBCs # 0 K/uL Sodium 141 (136-146) mmol/L Potassium 4.0 (3.5-5.1) mmol/L Chloride 109 (98-110) mmol/L Carbon Dioxide 25 (21-31) mmol/L BUN 7 (6.0-23.0) mg/dL Creatinine 0.7 (0.6-1.5) mg/dL Est Cr Clr Drug Dosing 104.01 mL/min Estimated GFR (MDRD) > 60.0 ml/min Glucose 90 (60-110) mg/dL Calcium 8.2 L (8.8-10.8) mg/dL Total Bilirubin 0.3 (0.1-1.5) mg/dL AST 17 (5-40) IU/L ALT 18 (8-54) IU/L Alkaline Phosphatase 110 (40-150) Total Protein 5.8 L (6.0-8.0) g/dL Albumin 3.1 L (3.5-5.0) g/dL Globulin 2.7 (2.0-3.5) g/dL Albumin/Globulin Ratio 1.2 L (1.3-2.8) FRANSISCA Results - Last 24 hrs: Microbiology 08/02/17 21:10 Campylobacter Antigen Assay - Final Stool / Feces Positive Campylobacter Ag - Final NEGATIVE FOR SHIGA TOXIN 1 - Final NEGATIVE FOR SHIGA TOXIN 2 Med Orders - Current: Current Medications Acetaminophen (Tylenol) 650 mg PO Q4H PRN PRN Reason: Pain (Mild 1-3)/fever Last Admin: 08/04/17 04:29 Dose: 650 mg Enoxaparin Sodium (Lovenox) 40 mg SUBCUT DAILY [facility] Last Admin: 08/04/17 09:12 Dose: 40 mg Lactated Ringer's (Ringers, Lactated) 1,000 mls @ 175 mls/hr IV ASDIRECTED [facility] Last Admin: 08/04/17 02:28 Dose: 175 mls/hr Levofloxacin/Dextrose 750 mg/ (Premix) 150 mls @ 100 mls/hr IV Q24H [facility] Last Admin: 08/03/17 20:24 Dose: 100 mls/hr Loperamide HCl (Imodium) 2 mg PO Q4H PRN PRN Reason: Diarrhea Last Admin: 08/03/17 20:25 Dose: 2 mg Ondansetron HCl (Zofran Odt) 4 mg PO Q4H PRN PRN Reason: nausea, able to take PO Ondansetron HCl (Zofran) 4 mg IVPUSH Q4H PRN PRN Reason: Nausea Pantoprazole Sodium (Protonix Iv) 40 mg IVPUSH Q24H [facility] Last Admin: 08/03/17 16:36 Dose: 40 mg Temazepam (Restoril) 15 mg PO BEDTIME PRN PRN Reason: Sleep Last Admin: 08/03/17 23:49 Dose: 15 mg Discontinued Medications Al Hydroxide/Mg Hydroxide 15 ml/ Metoclopramide HCl 5 mg/Lidocaine HCl 5 ml 0 ml PO ONETIME ONE Stop: 08/02/17 20:06 Last Admin: 08/02/17 21:38 Dose: 1 each Sodium Chloride (Normal Saline) 1,000 mls @ 999 mls/hr IV STAT ONE Stop: 08/02/17 17:08 Last Admin: 08/02/17 17:15 Dose: 999 mls/hr Piperacillin Sod/Tazobactam (Sod 3.375 gm/ Sodium Chloride) 50 mls @ 100 mls/ hr IV ONETIME ONE Stop: 08/02/17 16:46 Last Admin: 08/02/17 18:23 Dose: 100 mls/hr Magnesium Sulfate 4 gm/ Premix 100 mls @ 25 mls/hr IV ONETIME ONE Stop: 08/03/17 11:41 Last Admin: 08/03/17 08:06 Dose: 25 mls/hr Influenza Virus Vaccine (Pharmacy To Dose - Influenza Vaccine) 1 each IM ONETIME ONE Stop: 08/02/17 20:34 Influenza Virus Vaccine (Fluarix Quad [id number]) 60 mcg IM .ONCE ONE Stop: 08/02/17 20:46 Last Admin: 08/03/17 16:48 Dose: 60 mcg Iopamidol (Isovue Multipack-370 (76%)) 86 ml IVPUSH ONETIME STA Stop: 08/02/17 18:16 Last Admin: 08/02/17 18:16 Dose: 86 ml Morphine Sulfate (Morphine) 2 mg IVPUSH Q2H PRN PRN Reason: Pain (severe 7-10) Stop: 08/03/17 20:06 Ondansetron HCl (Zofran) 8 mg IVPUSH ONETIME ONE Stop: 08/02/17 16:09 Last Admin: 08/02/17 17:27 Dose: 8 mg Pantoprazole Sodium (Protonix Iv) 80 mg IVPUSH .BOLUS ONE Stop: 08/02/17 16:09 Last Admin: 08/02/17 17:27 Dose: 80 mg - Exam Quality Assessment: Reports: DVT Prophylaxis General: Reports: Alert, Oriented, Cooperative, No Acute Distress HEENT: Reports: Pupils Equal, Pupils Reactive, EOMI, Mucous Membr. Moist/Revloc Neck: Reports: Supple, Trachea Midline, No JVD Lungs: Reports: Clear to Auscultation, Normal Respiratory Effort Cardiovascular: Reports: Regular Rate, Regular Rhythm GI/Abdominal Exam: Normal Bowel Sounds, Soft, Non-Tender, No Organomegaly, No Distention (Female) Exam: Deferred Rectal (Female) Exam: Deferred Back Exam: Reports: Normal Inspection Extremities: Normal Inspection, Non-Tender, No Pedal Edema, Normal Capillary Refill Skin: Reports: Warm, Dry, Intact Neurological: Reports: No New Focal Deficit Psy/Mental Status: Reports: Alert, Normal Affect, Normal Mood *Q Meaningful Use (DIS) - VTE *Q VTE Criteria *Q: - Stroke *Q Stroke Criteria *Q: - AMI *Q AMI Criteria *Q:
[2017-08-04] MEDS: Loperamide 2 MG Cap PO PRN (12:50)
--- NOTE | 2017-08-05 08:45 | CT ---
EXAM DATE: 08/02/17 PATIENT'S AGE: 37 Patient: GERALDINE ABBOTT Facility: [place], [place] Site . Site : 1980 Study: CT Abdomen/Pelvis [id number]/23/2018 6:19:25 PM Ordering Physician: Isaac Bailey Final Report: INDICATION: Abdominal pain; diarrhea. COMPARISON: None. TECHNIQUE: CT abdomen and pelvis with intravenous contrast; no oral contrast. FINDINGS: Minimal nodular infiltrate left lower lobe and lateral segment right middle lobe. Nodular infiltrate left lower lobe posterior to the cardiac silhouette. Followup chest CT is suggested in a month duration. No evidence of pleural effusion. Normal size cardiac silhouette without any pericardial effusion. No focal hepatic or splenic pathology. No pancreatic pathology. Status post cholecystectomy. Splenic vein, superior mesenteric vein and the portal vein are unremarkable . No adrenal pathology. No kidney stones or obstructive uropathy. Symmetric perfusion of both the kidneys. No evidence of abdominal or pelvic ascites. Normal appendix. 2.9 x 2.4 cm dermoid identified in the right ovary with presence of fat as well as calcifications. Several small cysts/follicles identified in the right adnexa. CT study of the pelvis is otherwise unremarkable. IMPRESSION: 1. No kidneys stones or obstructive uropathy. 2. Normal appendix . 3. 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 4. Nodular infiltrate right middle lobe and left lower lobe; followup chest CT in a months duration suggested. Please note that all CT scans at this facility use dose modulation, iterative reconstruction, and/or weight-based dosing when appropriate to reduce radiation dose to as low as reasonably achievable. Dictated by Diane Duron MD @ Aug 02 2017 6:21PM (Electronic Signature) Report Signed by Proxy. EMELI
--- NOTE | 2017-08-05 08:51 | CR ---
EXAM DATE: 08/02/17 PATIENT'S AGE: 37 Patient: GERALDINE ABBOTT Facility: [place], [place] Site . Site : 1980 Study: XRay Chest [id number]/23/2018 7:18:35 PM Ordering Physician: Ilan Tirado Final Report: INDICATION: pain, sob TECHNIQUE: Chest 1 view COMPARISON: None FINDINGS: Cardiovascular and mediastinum: Heart size and vasculature are normal in caliber and appearance. Mediastinum is within normal limits. Lungs and pleural space: No focal consolidation. No sign of pleural effusion. No pneumothorax. Bones and soft tissues: No significant findings. IMPRESSION: No acute cardiopulmonary disease. Dictated by Colton Mitchell MD @ 08/02/2017 7:24:51 PM Dictated by: Colton Mitchell MD @ 08/02/2017 19:24:56 (Electronic Signature) Report Signed by Proxy. [facility]ITAL[facility]ie
== END 2017-08-04 15:00 | disposition home or self-care (01) ==
LOC: MW.ED 15:23 → MW.MS 18:42
PROVIDERS: ADMIT Family Medicine; ATTEND Family Medicine
DX: A04.5 Campylobacter enteritis (principal); I95.9 Hypotension, unspecified; F17.210 Nicotine dependence, cigarettes, uncomplicated; Z98.51 Tubal ligation status; Z90.49 Acquired absence of other specified parts of digestive tract
CPT/HCPCS: 36415; 71045; 74177; 80053; 81001; 81025; 83605; 83690; 83735; 85025; 87040; 87046; 87086; 87324; 87804; 87899; 90686; 96361; 96365; 96366; 96372; 96375; 96376; 99285; A9270; C9113; G0008; G0378; J1650; J1956; J2405; J2543; J3475; J7040; J7050; J7120; Q9967; 99283

== ENCOUNTER 2019-06-18 12:45 | Emergency (ER) | payer SELFPAY ==
[2019-06-18] MEDS ORDERED: Ketorolac 60 MG/2 ML SDV IM ONE (13:33)
[2019-06-18] MEDS ORDERED: Ondansetron 4 MG Tab.DIS PO ONE (13:33)
--- NOTE | 2019-06-18 14:02 | EDM.PDOC ---
ED HPI GENERAL MEDICAL PROBLEM - General Chief Complaint: General Stated Complaint: SORE THROAT/COUGH Time Seen by Provider: 06/18/19 13:26 Source of Information: Reports: Patient History Limitations: Reports: No Limitations - History of Present Illness INITIAL COMMENTS - FREE TEXT/NARRATIVE: HISTORY AND PHYSICAL: History of present illness: Patient is a 38-year-old female who presents to the ED today with concern of cough, sore throat, headache, and nasal congestion x3 days. Patient states she has had many headaches in the past and that her headache today is not severe as a typical headache she would have. Patient states she has not taken anything today for her symptoms. Patient denies any other symptoms or concerns. Patient denies fever, chills, chest pain, shortness of breath. Denies neck stiff ness, change in vision, syncope, or near syncope. Denies nausea, vomiting , abdominal pain, diarrhea, constipation, or dysuria. Has not noted any blood in urine or stool. Patient has been eating and drinking appropriately. Review of systems: As per history of present illness and below otherwise all systems reviewed and negative. Past medical history: As per history of present illness and as reviewed below otherwise noncontributory. Surgical history: As per history of present illness and as reviewed below otherwise noncontributory. Social history: See social history for further information Family history: As per history of present illness and as reviewed below otherwise noncontributory. Physical exam: General: Patient is alert, oriented, and in no acute distress. Patient sitting comfortably on exam table. HEENT: Atraumatic, normocephalic, pupils equal and reactive bilaterally, negative for conjunctival pallor or scleral icterus, mucous membranes moist, TMs normal bilaterally, throat is mildly erythematous without exudate, tonsils are equal, uvula midline, neck supple, nontender, trachea midline. No drooling or trismus noted. No meningeal signs. No hot potato voice noted. Lungs: Clear to auscultation, breath sounds equal bilaterally, chest nontender. Heart: S1S2, regular rate and rhythm without overt murmur Abdomen: Soft, nondistended, nontender. Negative for masses or hepatosplenomegaly. Negative for costovertebral tenderness. Pelvis: Stable nontender. Genitourinary: Deferred. Rectal: Deferred. Skin: Intact, warm, dry. No lesions or rashes noted. Extremities: Atraumatic, negative for cords or calf pain. Neurovascular unremarkable. Neuro: Awake, alert, oriented. Cranial nerves II through XII unremarkable. Cerebellum unremarkable. Motor and sensory unremarkable throughout. Exam nonfocal. Notes: During the discharge process, patient does state that the only reason she came here is because she is concerned she has a sexually transmitted infection. Patient states she was just told by a sexual partner that he had an STD and she states she had recent unprotected intercourse with him. Patient states she is not sure what STD but states that that is what she came here and is concerned about today. Discussed with patient that if she desires a full STD screening she can get this done with her primary care provider or at the [facility] unit. Discussed importance for follow-up with a primary care provider. Voices understanding and is agreeable to plan of care. Denies any further questions or concerns at this time. Diagnostics: Influenza, Strep, UA, Gonorrhea and Chlamydia Therapeutics: Toradol, Zofran, Azithromycin, Rocephin Prescription: Macrobid Impression: Flu-like symptoms Urinary Tract Infection High risk sexual activity Plan: 1. You can alternate ibuprofen and Tylenol as directed for pain and discomfort. Take medication as prescribed. 2. Follow-up with your primary care provider as discussed. Return to the ED as needed and as discussed. 3. If you desire full STD screening, this can be done with your primary care provider or at the [facility] unit. Definitive disposition and diagnosis as appropriate pending reevaluation and review of above. Head Pain Score (Numeric/FACES): 7 - Related Data Allergies Allergy/AdvReac Type Severity Reaction Status Date / Time No Known Allergies Allergy Verified 06/18/19 13:02 Home Meds: Home Meds . [No Known Home Meds] 06/18/19 [History] Past Medical History - Past Health History Medical/Surgical History: Denies Medical/Surgical History Genitourinary History: Reports: UTI, Recurrent - Infectious Disease History Infectious Disease History: Reports: None - Past Surgical History GI Surgical History: Reports: Cholecystectomy Female Surgical History: Reports: Tubal Ligation Social & Family History - Family History Family Medical History: Noncontributory - Tobacco Use Smoking Status *Q: Current Every Day Smoker Years of Tobacco use: 3 Packs/Tins Daily: 1 - Caffeine Use Caffeine Use: Reports: Coffee, Energy Drinks, Soda, Tea - Recreational Drug Use Recreational Drug Use: Yes Recreational Drug Type: Reports: Marijuana/Hashish Recreational Drug Use Frequency: Socially ED ROS GENERAL - Review of Systems Review Of Systems: Comprehensive ROS is negative, except as noted in HPI. ED EXAM, GENERAL - Physical Exam Exam: See Below (see dictation) Course - Vital Signs Last Recorded V/S: Last Vital Signs Temp 98.0 F 06/18/19 13:03 Pulse 102 H 06/18/19 13:03 Resp 20 06/18/19 13:03 BP 116/63 06/18/19 13:03 Pulse Ox 98 06/18/19 13:03 - Orders/Labs/Meds Orders: Active Orders 24 hr Category Date Time Status CHLAMYDIA AND GONORRHEA BY TMA Stat Lab 06/18/19 13:19 Received CULTURE STREP A CONFIRMATION [] Stat Lab 06/18/19 13:09 Results CULTURE URINE [] Stat Lab 06/18/19 13:19 Received STREP SCRN A RAPID W CULT CONF [] Stat Lab 06/18/19 13:09 Results Labs: Laboratory Tests 06/18/19 Range/Units 13:19 Urine Color YELLOW Urine Appearance SLT CLOUDY Urine pH 6.0 (5.0-8.0) Ur Specific [place] >= 1.030 (1.001-1.035) Urine Protein NEGATIVE (NEGATIVE) mg/dL Urine Glucose (UA) NEGATIVE (NEGATIVE) mg/dL Urine Ketones NEGATIVE (NEGATIVE) mg/dL Urine Occult Blood NEGATIVE (NEGATIVE) Urine Nitrite POSITIVE H (NEGATIVE) Urine Bilirubin NEGATIVE (NEGATIVE) Urine Urobilinogen 0.2 (<2.0) EU/dL Ur Leukocyte Esterase NEGATIVE (NEGATIVE) Urine RBC 0-1 (0-2/HPF) Urine WBC 1-3 (0-5/HPF) Ur Epithelial Cells MANY (NONE-FEW) Calcium Oxalate Crystal MODERATE (NEGATIVE) Urine Bacteria 2+ H (NEGATIVE) Meds: Medications Discontinued Medications Generic Name Dose Route Start Last Admin Trade Name Freq PRN Reason Stop Dose Admin Azithromycin 1,000 mg 06/18/19 14:12 06/18/19 14:51 Zithromax PO 06/18/19 14:13 1,000 mg NOW STA Administration Ceftriaxone Sodium 250 mg/ 1 mls @ 1 mls/sec 06/18/19 14:13 06/18/19 14:52 Lidocaine HCl IM 06/18/19 14:14 1 mls/sec ONETIME ONE Administration Ketorolac Tromethamine 60 mg 06/18/19 13:33 06/18/19 14:03 Toradol IM 06/18/19 13:34 60 mg ONETIME ONE Administration Ondansetron HCl 4 mg 06/18/19 13:33 06/18/19 14:03 Zofran Odt PO 06/18/19 13:34 4 mg ONETIME ONE Administration Departure - Departure Time of Disposition: 15:08 Disposition: Home, Self-Care 01 Clinical Impression: Flu-like symptoms High risk sexual behavior Qualifiers: High risk sexual behavior type: unspecified Qualified Code(s): Z72.51 - High risk heterosexual behavior Urinary tract infection Qualifiers: Urinary tract infection type: acute cystitis Hematuria presence: without hematuria Qualified Code(s): N30.00 - Acute cystitis without hematuria - Discharge Information Referrals: PCP,None [Primary Care Provider] - Forms: ED Department Discharge Additional Instructions: The following information is given to patients seen in the emergency department who are being discharged to home. This information is to outline your options for follow-up care. We provide all patients seen in our emergency department with a follow-up referral. The need for follow-up, as well as the timing and circumstances, are variable depending upon the specifics of your emergency department visit. If you don't have a primary care physician on staff, we will provide you with a referral. We always advise you to contact your personal physician following an emergency department visit to inform them of the circumstance of the visit and for follow-up with them and/or the need for any referrals to a consulting specialist. The emergency department will also refer you to a specialist when appropriate. This referral assures that you have the opportunity for follow-up care with a specialist. All of these measure are taken in an effort to provide you with optimal care, which includes your follow-up. Under all circumstances we always encourage you to contact your private physician who remains a resource for coordinating your care. When calling for follow-up care, please make the office aware that this follow-up is from your recent emergency room visit. If for any reason you are refused follow-up, please contact the [facility] Emergency Department at and asked to speak to the emergency department charge nurse. JONG [facility] [address] [place] [address] [facility] [address] [place] [address] 1. You can alternate ibuprofen and Tylenol as directed for pain and discomfort. Take medication as prescribed. 2. Follow-up with your primary care provider as discussed. Return to the ED as needed and as discussed. 3. If you desire full STD screening, this can be done with your primary care provider or at the [facility] unit. Sepsis Event Note - Evaluation Sepsis Screening Result: No Definite Risk - Focused Exam Vital Signs: Vital Signs Temp Pulse Resp BP Pulse Ox 06/18/19 13:03 98.0 F 102 H 20 116/63 98 Date Exam was Performed: 06/18/19 Time Exam was Performed: 15:08 - My Orders Last 24 Hours: My Active Orders 06/18/19 13:09 CULTURE STREP A CONFIRMATION [RM] Stat STREP SCRN A RAPID W CULT CONF [RM] Stat 06/18/19 13:19 CHLAMYDIA AND GONORRHEA BY TMA Stat CULTURE URINE [RM] Stat - Assessment/Plan Last 24 Hours: My Active Orders 06/18/19 13:09 CULTURE STREP A CONFIRMATION [RM] Stat STREP SCRN A RAPID W CULT CONF [RM] Stat 06/18/19 13:19 CHLAMYDIA AND GONORRHEA BY TMA Stat CULTURE URINE [RM] Stat
[2019-06-18] MEDS ORDERED: Azithromycin 250 MG Tab PO STA (14:12)
[2019-06-18] MEDS ORDERED: cefTRIAXone 250 MG in Lidocaine 1% 1 ML IM ONE (14:13)
== END 2019-06-18 15:24 | disposition home or self-care (01) ==
LOC: MW.ED 12:45
DX: J02.9 Acute pharyngitis, unspecified (principal); R05 Cough; N30.00 Acute cystitis without hematuria; F17.210 Nicotine dependence, cigarettes, uncomplicated; Z72.51 High risk heterosexual behavior
CPT/HCPCS: 81001; 87081; 87086; 87491; 87591; 87804; 87880; 96372; 99283; A9270; J0696; J1885; J2001

== ENCOUNTER 2020-01-21 18:24 | Emergency (ER) | payer MEDICAID, OTHER ==
[2020-01-21] MEDS ORDERED: Sodium Chloride 0.9% 10 ML Syringe FLUSH PRN (19:51)
[2020-01-21] MEDS ORDERED: Sodium Chloride 0.9% 2.5 ML Syringe FLUSH PRN (19:51)
[2020-01-21] MEDS ORDERED: Sodium Chloride 0.9% 1,000 ML IV ONE (19:51)
[2020-01-21] MEDS ORDERED: Ondansetron 4 MG/2 ML SDV IVPUSH ONE (19:53)
[2020-01-21] MEDS ORDERED: Ketorolac 30 MG/ML SDV IVPUSH ONE (19:53)
[2020-01-21 20:52] LABS: BLOOD UREA NITROGEN,BUN 11 mg/dL (7.0-18.0); CARBON DIOXIDE,CO2 28.1 mmol/L (21.0-32.0); CHLORIDE,CL 103 mmol/L (98-107); GLUCOSE RANDOM 92 mg/dL (74-106); SODIUM,NA 140 mmol/L (136-145)
--- NOTE | 2020-01-21 21:09 | CR ---
Abdominal series: Frontal view of the chest was obtained as well as supine and upright views of the abdomen. Comparison: Prior chest x-ray of 08/02/17. Heart size and mediastinum are within normal limits. Lungs are clear with no acute parenchymal change. Slight increased stool is noted throughout the colon. Bowel gas pattern is otherwise unremarkable. Calcifications are seen within the pelvis most likely representing phleboliths. Surgical clips are seen from previous cholecystectomy. Minimal scoliosis is noted within the spine. Impression: 1. Slight increased stool within colon. 2. Other findings believed to be nonacute. Diagnostic code #2 Study was dictated in MDT
--- NOTE | 2020-01-21 21:22 | EDM.PDOC ---
ED HPI GENERAL MEDICAL PROBLEM - General Chief Complaint: Back Pain or Injury Stated Complaint: BACKED UP, LOWER BACK AND ABDOMINAL PAIN Time Seen by Provider: 01/21/20 18:30 - History of Present Illness INITIAL COMMENTS - FREE TEXT/NARRATIVE: HISTORY AND PHYSICAL: History of present illness: This is a 39-year-old female with a history significant for constipation and kidney problems in the past who presents the ER today secondary to nausea and lower back pain. Patient also describes some lower abdominal discomfort and feels like she is constipated again. Patient reports that her last bowel movement was actually today but it was extremely hard. Patient denies any fevers, shakes, chills, vomiting, diarrhea. Patient reports that she has had nausea and constipation. Patient complains of lower abdominal discomfort bi laterally. Patient denies any dysuria frequency urgency. Patient has not hematuria. Patient reports that she did have a small amount of bright red blood in her stool after straining heavily to move her bowels today. Patient reports that she has been tolerating p.o. solids and liquids well and is concerned because she is not able to get any satiety. Patient reports that she has been taking flaxseed in order to help her constipation without any significant relief. Review of systems: As per history of present illness and below otherwise all systems reviewed and negative. Past medical history: As per history of present illness and as reviewed below otherwise noncontributory. Surgical history: As per history of present illness and as reviewed below otherwise noncontributory. Social history: No reported history of drug or alcohol abuse. Family history: As per history of present illness and as reviewed below otherwise noncontributory. Physical exam: Constitutional: Patient is oriented to person, place, and time. Appears well- developed and well-nourished. No distress. HEENT: Moist mucous membranes., Neck supple, no nuchal rigidity, no photophobia, no Kernig's sign or Brudzinski sign, patient does not present with signs or symptoms of be consistent with meningitis. Head: Normocephalic and atraumatic Eyes: Right eye exhibits no discharge. Left eye exhibits no discharge. No scleral icterus Neck: Normal range of motion. No tracheal deviation present. Cardiovascular: Normal rate and regular rhythm. Pulmonary: Effort normal, no respiratory distress. Abd: Soft, nondistended, no rebound/guarding, no psoas or obturator signs, no tenderness at Mcberney's point, no Thomas's sign. Pt does not present with an exam that would be consistent with an acute surgical abdomen at this time. Mild tenderness to palpation suprapubic region. Musculoskeletal: Normal range of motion. Mild tenderness palpation the bilateral lower back. No point C-spine T-spine or L-spine tenderness to palpation Neurologic: Alert and oriented to person, place and time. Motor 5 out of 5, sensation intact light touch and pinprick. Patient ambulating with any difficulty. Skin: Huey, warm and dry. Psychiatric: Normal mood and affect. Behavior is normal. Judgment and thought content normal. Nursing note and vital signs have been reviewed Diagnostics: CBC/CMP within normal limits. Urinalysis unremarkable. Obstruction series reveals mild constipation as interpreted by radiology Therapeutics: FROILAN Delatorre Assessment and plan: 39-year-old female who presents the ER today secondary to constipation and abdominal pain. Patient's ER work-up did not reveal any acute source of her abdominal discomfort. Patient does have a history of constipation and her x-ray today reveals increased stool load. Patient will be discharged home with instructions to get Dulcolax/Colace [id number] and to increase her fruit and fiber intake. Patient be instructed to make an appointment to follow-up with her family doctor within the next 1 to 2 days for reevaluation. - Related Data Allergies Allergy/AdvReac Type Severity Reaction Status Date / Time No Known Allergies Allergy Verified 01/21/20 19:37 Home Meds: Home Meds Docusate Sodium [Colace] 100 mg PO BID #30 cap 01/21/20 [Rx] Ondansetron [Zofran ODT] 4 mg PO Q6H PRN #12 tab.dis 01/21/20 [Rx] Past Medical History - Past Health History Medical/Surgical History: Denies Medical/Surgical History Gastrointestinal History: Reports: None Genitourinary History: Reports: UTI, Recurrent HEART SPECIALIST History: Reports: Psychiatric History: Reports: Anxiety, Depression, PTSD - Infectious Disease History Infectious Disease History: Reports: None - Past Surgical History GI Surgical History: Reports: Cholecystectomy Female Surgical History: Reports: Tubal Ligation Social & Family History - Family History Family Medical History: Noncontributory - Tobacco Use Smoking Status *Q: Current Every Day Smoker Years of Tobacco use: 20 Packs/Tins Daily: 0.5 - Caffeine Use Caffeine Use: Reports: Coffee - Recreational Drug Use Recreational Drug Use: Yes Recreational Drug Type: Reports: Marijuana/Hashish Recreational Drug Use Frequency: Weekly ED ROS GENERAL - Review of Systems Review Of Systems: Comprehensive ROS is negative, except as noted in HPI. ED EXAM, GENERAL - Physical Exam Exam: See Below Course - Vital Signs Last Recorded V/S: Last Vital Signs Temp 96.5 F L 01/21/20 19:32 Pulse 74 01/21/20 20:46 Resp 20 01/21/20 20:46 BP 110/71 01/21/20 20:46 Pulse Ox 98 01/21/20 20:46 - Orders/Labs/Meds Orders: Active Orders 24 hr Category Date Time Status Sodium Chloride 0.9% [Saline Flush] Med 01/21/20 19:51 Active 10 ml FLUSH ASDIRECTED PRN Sodium Chloride 0.9% [Saline Flush] Med 01/21/20 19:51 Active 2.5 ml FLUSH ASDIRECTED PRN Saline Lock Insert [OM.PC] Stat Oth 01/21/20 19:51 Ordered Medication Orders Sodium Chloride (Saline Flush) 10 ml FLUSH ASDIRECTED PRN PRN Reason: Keep Vein Open Last Admin: 01/21/20 20:16 Dose: 10 ml Documented by: TITO Sodium Chloride (Saline Flush) 2.5 ml FLUSH ASDIRECTED PRN PRN Reason: Keep Vein Open Last Admin: 01/21/20 20:16 Dose: 2.5 ml Documented by: TITO Labs: Laboratory Tests 01/21/20 01/21/20 01/21/20 Range/Units 19:46 19:46 20:11 WBC 10.35 (4.0-11.0) K/uL RBC 4.64 (4.30-5.90) M/uL Hgb 12.5 (12.0-16.0) g/dL Hct 39.4 (36.0-46.0) % MCV 84.9 (80.0-98.0) fL MCH 26.9 L (27.0-32.0) pg MCHC 31.7 (31.0-37.0) g/dL RDW Std Deviation 47.3 (28.0-62.0) fl RDW Coeff of Thuy 15 (11.0-15.0) % Plt Count 356 (150-400) K/uL MPV 10.10 (7.40-12.00) fL Neut % (Auto) 60.0 (48.0-80.0) % Lymph % (Auto) 30.3 (16.0-40.0) % Thayer % (Auto) 8.3 (0.0-15.0) % Eos % (Auto) 1.2 (0.0-7.0) % Baso % (Auto) 0.2 (0.0-1.5) % Neut # (Auto) 6.2 H (1.4-5.7) K/uL Lymph # (Auto) 3.1 H (0.6-2.4) K/uL Thayer # (Auto) 0.9 H (0.0-0.8) K/uL Eos # (Auto) 0.1 (0.0-0.7) K/uL Baso # (Auto) 0.0 (0.0-0.1) K/uL Nucleated RBC % 0.0 /100WBC Nucleated RBCs # 0 K/uL Sodium (136-145) mmol/L Potassium (3.5-5.1) mmol/L Chloride (98-107) mmol/L Carbon Dioxide (21.0-32.0) mmol/L BUN (7.0-18.0) mg/dL Creatinine (0.6-1.0) mg/dL Est Cr Clr Drug Dosing Estimated GFR (MDRD) ml/min Glucose (74-106) mg/dL Calcium (8.5-10.1) mg/dL Total Bilirubin (0.2-1.0) mg/dL AST (15-37) IU/L ALT (14-63) IU/L Alkaline Phosphatase (46-116) U/L Total Protein (6.4-8.2) g/dL Albumin (3.4-5.0) g/dL Globulin (2.6-4.0) g/dL Albumin/Globulin Ratio (0.9-1.6) Urine Color YELLOW Urine Appearance SLT CLOUDY Urine pH 6.0 (5.0-8.0) Ur Specific Kent 1.025 (1.001-1.035) Urine Protein NEGATIVE (NEGATIVE) mg/dL Urine Glucose (UA) NEGATIVE (NEGATIVE) mg/dL Urine Ketones NEGATIVE (NEGATIVE) mg/dL Urine Occult Blood SMALL H (NEGATIVE) Urine Nitrite NEGATIVE (NEGATIVE) Urine Bilirubin NEGATIVE (NEGATIVE) Urine Urobilinogen 0.2 (<2.0) EU/dL Ur Leukocyte Esterase NEGATIVE (NEGATIVE) Urine RBC 0-2 (0-2/HPF) Urine WBC 0-1 (0-5/HPF) Ur Epithelial Cells FEW (NONE-FEW) Urine Bacteria 1+ H (NEGATIVE) Urine Mucus LIGHT (NONE-MOD) Urine HCG, Qual NEGATIVE (NEGATIVE) 01/21/20 Range/Units 20:11 WBC (4.0-11.0) K/uL RBC (4.30-5.90) M/uL Hgb (12.0-16.0) g/dL Hct (36.0-46.0) % MCV (80.0-98.0) fL MCH (27.0-32.0) pg MCHC (31.0-37.0) g/dL RDW Std Deviation (28.0-62.0) fl RDW Coeff of Thuy (11.0-15.0) % Plt Count (150-400) K/uL MPV (7.40-12.00) fL Neut % (Auto) (48.0-80.0) % Lymph % (Auto) (16.0-40.0) % Thayer % (Auto) (0.0-15.0) % Eos % (Auto) (0.0-7.0) % Baso % (Auto) (0.0-1.5) % Neut # (Auto) (1.4-5.7) K/uL Lymph # (Auto) (0.6-2.4) K/uL Thayer # (Auto) (0.0-0.8) K/uL Eos # (Auto) (0.0-0.7) K/uL Baso # (Auto) (0.0-0.1) K/uL Nucleated RBC % /100WBC Nucleated RBCs # K/uL Sodium 140 (136-145) mmol/L Potassium 4.0 (3.5-5.1) mmol/L Chloride 103 (98-107) mmol/L Carbon Dioxide 28.1 (21.0-32.0) mmol/L BUN 11 (7.0-18.0) mg/dL Creatinine 0.9 (0.6-1.0) mg/dL Est Cr Clr Drug Dosing TNP Estimated GFR (MDRD) > 60.0 ml/min Glucose 92 (74-106) mg/dL Calcium 8.5 (8.5-10.1) mg/dL Total Bilirubin 0.4 (0.2-1.0) mg/dL AST 14 L (15-37) IU/L ALT 24 (14-63) IU/L Alkaline Phosphatase 126 H (46-116) U/L Total Protein 8.3 H (6.4-8.2) g/dL Albumin 4.0 (3.4-5.0) g/dL Globulin 4.3 H (2.6-4.0) g/dL Albumin/Globulin Ratio 0.9 (0.9-1.6) Urine Color Urine Appearance Urine pH (5.0-8.0) Ur Specific Kent (1.001-1.035) Urine Protein (NEGATIVE) mg/dL Urine Glucose (UA) (NEGATIVE) mg/dL Urine Ketones (NEGATIVE) mg/dL Urine Occult Blood (NEGATIVE) Urine Nitrite (NEGATIVE) Urine Bilirubin (NEGATIVE) Urine Urobilinogen (<2.0) EU/dL Ur Leukocyte Esterase (NEGATIVE) Urine RBC (0-2/HPF) Urine WBC (0-5/HPF) Ur Epithelial Cells (NONE-FEW) Urine Bacteria (NEGATIVE) Urine Mucus (NONE-MOD) Urine HCG, Qual (NEGATIVE) Meds: Medications Generic Name Dose Route Start Last Admin Trade Name Freq PRN Reason Stop Dose Admin Sodium Chloride 10 ml 01/21/20 19:51 01/21/20 20:16 Saline Flush FLUSH 10 ml ASDIRECTED PRN Administration Keep Vein Open Sodium Chloride 2.5 ml 01/21/20 19:51 01/21/20 20:16 Saline Flush FLUSH 2.5 ml ASDIRECTED PRN Administration Keep Vein Open Discontinued Medications Generic Name Dose Route Start Last Admin Trade Name Freq PRN Reason Stop Dose Admin Sodium Chloride 1,000 mls @ 999 mls/hr 01/21/20 19:51 01/21/20 20:12 Normal Saline IV 01/21/20 20:51 999 mls/hr .Bolus ONE Administration Ketorolac Tromethamine 30 mg 01/21/20 19:53 01/21/20 20:13 Toradol IVPUSH 01/21/20 19:54 30 mg ONETIME ONE Administration Ondansetron HCl 4 mg 01/21/20 19:53 01/21/20 20:13 Zofran IVPUSH 01/21/20 19:54 4 mg ONETIME ONE Administration Departure - Departure Time of Disposition: 21:21 Disposition: Home, Self-Care 01 Condition: Good Clinical Impression: Abdominal pain, Constipation - Discharge Information Instructions: Constipation, Adult, Abdominal Pain, Adult Referrals: PCP,None [Primary Care Provider] - Additional Instructions: Your ER work-up today was unremarkable except for evidence of constipation on your obstruction series. You have been given a prescription for Colace to take twice a day to assist you with moving her bowels. You were also given a pre scription of Zofran to assist you with your nausea. Please make an appointment to see your family doctor within the week to be reevaluated. [facility] - Internal Medicine [address] [place] [address] The following information is given to patients seen in the emergency department who are being discharged to home. This information is to outline your options for follow-up care. We provide all patients seen in our emergency department with a follow-up referral. The need for follow-up, as well as the timing and circumstances, are variable depending upon the specifics of your emergency department visit. If you don't have a primary care physician on staff, we will provide you with a referral. We always advise you to contact your personal physician following an emergency department visit to inform them of the circumstance of the visit and for follow-up with them and/or the need for any referrals to a consulting specialist. The emergency department will also refer you to a specialist when appropriate. This referral assures that you have the opportunity for follow-up care with a specialist. All of these measure are taken in an effort to provide you with optimal care, which includes your follow-up. Under all circumstances we always encourage you to contact your private physician who remains a resource for coordinating your care. When calling for follow-up care, please make the office aware that this follow-up is from your recent emergency room visit. If for any reason you are refused follow-up, please contact the [facility] Emergency Department at and asked to speak to the emergency department charge nurse. Sepsis Event Note (ED) - Evaluation Sepsis Screening Result: No Definite Risk - Focused Exam Vital Signs: Vital Signs Temp Pulse Resp BP Pulse Ox 01/21/20 20:46 74 20 110/71 98 01/21/20 19:32 96.5 F L 74 17 110/71 98 - My Orders Last 24 Hours: My Active Orders 01/21/20 19:51 Sodium Chloride 0.9% [Saline Flush] 10 ml FLUSH ASDIRECTED PRN Sodium Chloride 0.9% [Saline Flush] 2.5 ml FLUSH ASDIRECTED PRN Saline Lock Insert [OM.PC] Stat - Assessment/Plan Last 24 Hours: My Active Orders 01/21/20 19:51 Sodium Chloride 0.9% [Saline Flush] 10 ml FLUSH ASDIRECTED PRN Sodium Chloride 0.9% [Saline Flush] 2.5 ml FLUSH ASDIRECTED PRN Saline Lock Insert [OM.PC] Stat
== END 2020-01-21 21:40 | disposition home or self-care (01) ==
LOC: MW.ED 18:24
DX: K59.00 Constipation, unspecified (principal); F17.210 Nicotine dependence, cigarettes, uncomplicated
CPT/HCPCS: 36415; 74022; 80053; 81001; 81025; 85025; 96374; 96375; 99283; J1885; J2405; J7030

== ENCOUNTER 2020-01-22 06:04 | Emergency (ER) | payer SELFPAY ==
[2020-01-22] MEDS ORDERED: Sodium Chloride 0.9% 2.5 ML Syringe FLUSH PRN (06:33)
[2020-01-22] MEDS ORDERED: Sodium Chloride 0.9% 10 ML Syringe FLUSH PRN (06:33)
[2020-01-22] MEDS ORDERED: Ondansetron 4 MG/2 ML SDV IVPUSH ONE (06:33)
[2020-01-22] MEDS ORDERED: Sodium Chloride 0.9% 1,000 ML IV ONE (06:33)
--- NOTE | 2020-01-22 06:43 | EDM.PDOC ---
<Burton Rai - Last Filed: 01/22/20 07:21> ED HPI GENERAL MEDICAL PROBLEM - General Chief Complaint: Abdominal Pain Stated Complaint: ABDOMINAL PAIN, NAUSEATED Time Seen by Provider: 01/22/20 06:37 - History of Present Illness INITIAL COMMENTS - FREE TEXT/NARRATIVE: HISTORY AND PHYSICAL: History of present illness: This is a 39-year-old female who presents the ER today secondary to not feeling well. Patient was seen and evaluated in the ER yesterday and was diagnosed with abdominal pain and constipation. Patient reports that the pain that she is experiencing now is completely different than the pain that brought her to the ER earlier yesterday. Patient reports "I think I got poisoned by the food that I could ". Patient reports that she cooked canned beef that she obtained from a food bank yesterday. Patient reports shortly after eating it she started feeling cold and hot and felt like her skin was sunburned. She reports that she started having abdominal cramping with associated acid reflux and she reports she has been belching ever since. Patient denies any fevers, shakes, chills. Patient reports that she is had nausea but no vomiting or diarrhea. Patient reports she still has not moved her bowels since she went home. Patient denies any cough or URI symptoms. Patient denies any dysuria frequency urgency. Patient reports that she has been moving flatus. Patient denies any history of hypertension, diabetes, liver, lung, kidney problems. Patient is status post cholecystectomy. 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 Patient denies any alcohol or drug. Patient admits to tobacco use. No known drug allergies Review of systems: As per history of present illness and below otherwise all systems reviewed and negative. Past medical history: As per history of present illness and as reviewed below otherwise noncontributory. Surgical history: As per history of present illness and as reviewed below otherwise noncontributory. Social history: No reported history of drug or alcohol abuse. Family history: As per history of present illness and as reviewed below otherwise noncontributory. Physical exam: This is a well-developed well-nourished 39-year-old female who is resting comfortably on the stretcher and appears to be in no acute distress. Constitutional: Patient is oriented to person, place, and time. Appears well- developed and well-nourished. No distress. HEENT: Moist mucous membranes Head: Normocephalic and atraumatic Eyes: Right eye exhibits no discharge. Left eye exhibits no discharge. No scleral icterus Neck: Normal range of motion. No tracheal deviation present. Cardiovascular: Normal rate and regular rhythm. Pulmonary: Effort normal, no respiratory distress. Abd: Soft, nondistended, no rebound/guarding, no psoas or obturator signs, no tenderness at Mcberney's point, no Thomas's sign. Pt does not present with an exam that would be consistent with an acute surgical abdomen at this time. Mild diffuse tenderness in the midepigastric region Musculoskeletal: Normal range of motion Neurologic: Alert and oriented to person, place and time. Skin: [place], warm and dry. Psychiatric: Normal mood and affect. Behavior is normal. Judgment and thought content normal. Nursing note and vital signs have been reviewed Diagnostics: CBC/CMP/lipase CT abdomen pelvis Therapeutics: Zofran/GI cocktail/NSS Assessment and plan: This is a 39-year-old female who presents ER today with concerns of reaction to food that she had eaten earlier this evening for dinner. Patient reports shortly after eating canned beef she started having symptoms consistent with nausea, acid reflux, bulging, hot and cold sweats, sensation kumar t her skin was burning. In the ER, the patient is clinically and hemodynamically stable and her exam is not consistent with an acute surgical abdomen. Given that this is her second visit to the ER for abdominal pain, although this is different discomfort that she had during her initial visit, I will order a CT scan of the abdomen pelvis to assure that the pain of the discomfort from the earlier visit and this visit are not related. Patient will be given Zofran and a GI cocktail to assist with her symptoms and will be given a liter of normal saline while awaiting the CT scan. 7 AM: Care signed out to Dr. Tamez. abdomen Pain Score (Numeric/FACES): 8 - Related Data Allergies Allergy/AdvReac Type Severity Reaction Status Date / Time No Known Allergies Allergy Verified 01/21/20 19:37 Home Meds: Home Meds Docusate Sodium [Colace] 100 mg PO BID #30 cap 01/21/20 [Rx] Ondansetron [Zofran ODT] 4 mg PO Q6H PRN #12 tab.dis 01/21/20 [Rx] Past Medical History - Past Health History Medical/Surgical History: Denies Medical/Surgical History Gastrointestinal History: Reports: None Genitourinary History: Reports: UTI, Recurrent [facility] History: Reports: Psychiatric History: Reports: Anxiety, Depression, PTSD - Infectious Disease History Infectious Disease History: Reports: None - Past Surgical History GI Surgical History: Reports: Cholecystectomy Female Surgical History: Reports: Tubal Ligation Social & Family History - Family History Family Medical History: Noncontributory - Caffeine Use Caffeine Use: Reports: Coffee ED ROS GENERAL - Review of Systems Review Of Systems: Comprehensive ROS is negative, except as noted in HPI. ED EXAM, GENERAL - Physical Exam Exam: See Below Departure - Departure Time of Disposition: 07:20 Disposition: Home, Self-Care 01 Clinical Impression: Food poisoning, Dermoid cyst, Dermoid cyst of right ovary Abdominal pain Qualifiers: Abdominal location: epigastric Qualified Code(s): R10.13 - Epigastric pain - Discharge Information Instructions: Abdominal Pain, Adult, [id number], Indigestion, [id number], Ovarian Tumors, Food Poisoning, [id number] Referrals: PCP,None [Primary Care Provider] - Forms: ED Department Discharge Additional Instructions: We did not find a cause for your abdominal pain, you may have had a food poisoning episode. Please drink plenty of fluids for the next few days. Please start with a clear liquid diet, i.e. chicken broth or Gatorade for the next 12 hours. If your pain continues to be minimal you may slowly advance that to crackers and then eventually bland foods. Follow-up with your primary care physician. There was also a dermoid cyst found your CT scan. Please follow-up with the [facility] clinic listed below who can continue to monitor this. The following information is given to patients seen in the emergency department who are being discharged to home. This information is to outline your options for follow-up care. We provide all patients seen in our emergency department with a follow-up referral. The need for follow-up, as well as the timing and circumstances, are variable depending upon the specifics of your emergency department visit. If you don't have a primary care physician on staff, we will provide you with a referral. We always advise you to contact your personal physician following an emergency department visit to inform them of the circumstance of the visit and for follow-up with them and/or the need for any referrals to a consulting spe cialist. The emergency department will also refer you to a specialist when appropriate. This referral assures that you have the opportunity for follow-up care with a specialist. All of these measure are taken in an effort to provide you with optimal care, which includes your follow-up. Under all circumstances we always encourage you to contact your private physician who remains a resource for coordinating your care. When calling for follow-up care, please make the office aware that this follow-up is from your recent emergency room visit. If for any reason you are refused follow-up, please contact the [facility] Emergency Department at and asked to speak to the emergency department charge nurse. [facility] [address] [place] [id number] [facility] [address] [place] [id number] [facility] [address] [place] [id number] [facility] [address] [place] [id number] Sepsis Event Note (ED) - Evaluation Sepsis Screening Result: No Definite Risk <Kalie Anderson - Last Filed: 01/22/20 09:19> Course - Vital Signs Last Recorded V/S: Last Vital Signs Temp 96 F L 01/22/20 06:14 Pulse 93 01/22/20 06:14 Resp 17 01/22/20 06:14 BP 114/90 01/22/20 06:14 Pulse Ox 97 01/22/20 06:14 - Orders/Labs/Meds Orders: Active Orders 24 hr Category Date Time Status Sodium Chloride 0.9% [Saline Flush] Med 01/22/20 06:33 Active 10 ml FLUSH ASDIRECTED PRN Sodium Chloride 0.9% [Saline Flush] Med 01/22/20 06:33 Active 2.5 ml FLUSH ASDIRECTED PRN Saline Lock Insert [OM.PC] Stat Oth 01/22/20 06:33 Ordered Medication Orders Sodium Chloride (Saline Flush) 10 ml FLUSH ASDIRECTED PRN PRN Reason: Keep Vein Open Sodium Chloride (Saline Flush) 2.5 ml FLUSH ASDIRECTED PRN PRN Reason: Keep Vein Open Labs: Laboratory Tests 01/22/20 01/22/20 Range/Units 07:00 07:00 WBC 8.83 (4.0-11.0) K/uL RBC 4.13 L (4.30-5.90) M/uL Hgb 11.1 L (12.0-16.0) g/dL Hct 34.3 L (36.0-46.0) % MCV 83.1 (80.0-98.0) fL MCH 26.9 L (27.0-32.0) pg MCHC 32.4 (31.0-37.0) g/dL RDW Std Deviation 45.2 (28.0-62.0) fl RDW Coeff of Thuy 15 (11.0-15.0) % Plt Count 245 (150-400) K/uL MPV 9.90 (7.40-12.00) fL Neut % (Auto) 86.4 H (48.0-80.0) % Lymph % (Auto) 6.9 L (16.0-40.0) % [place] % (Auto) 6.0 (0.0-15.0) % Eos % (Auto) 0.6 (0.0-7.0) % Baso % (Auto) 0.1 (0.0-1.5) % Neut # (Auto) 7.6 H (1.4-5.7) K/uL Lymph # (Auto) 0.6 (0.6-2.4) K/uL [place] # (Auto) 0.5 (0.0-0.8) K/uL Eos # (Auto) 0.1 (0.0-0.7) K/uL Baso # (Auto) 0.0 (0.0-0.1) K/uL Nucleated RBC % 0.0 /100WBC Nucleated RBCs # 0 K/uL Sodium 135 L (136-145) mmol/L Potassium 3.9 (3.5-5.1) mmol/L Chloride 102 (98-107) mmol/L Carbon Dioxide 24.8 (21.0-32.0) mmol/L BUN 13 (7.0-18.0) mg/dL Creatinine 1.2 H (0.6-1.0) mg/dL Est Cr Clr Drug Dosing 59.51 mL/min Estimated GFR (MDRD) > 60.0 ml/min Glucose 120 H (74-106) mg/dL Calcium 7.6 L (8.5-10.1) mg/dL Total Bilirubin 0.4 (0.2-1.0) mg/dL AST 19 (15-37) IU/L ALT 20 (14-63) IU/L Alkaline Phosphatase 113 (46-116) U/L Total Protein 6.9 (6.4-8.2) g/dL Albumin 3.3 L (3.4-5.0) g/dL Globulin 3.6 (2.6-4.0) g/dL Albumin/Globulin Ratio 0.9 (0.9-1.6) Lipase 120 (73-393) U/L Meds: Medications Generic Name Dose Route Start Last Admin Trade Name Santo PRN Reason Stop Dose Admin Sodium Chloride 10 ml 01/22/20 06:33 Saline Flush FLUSH ASDIRECTED PRN Keep Vein Open Sodium Chloride 2.5 ml 01/22/20 06:33 Saline Flush FLUSH ASDIRECTED PRN Keep Vein Open Discontinued Medications Generic Name Dose Route Start Last Admin Trade Name Freq PRN Reason Stop Dose Admin Al Hydroxide/Mg Hydroxide 15 0 ml 01/22/20 06:33 01/22/20 07:04 ml/ Lidocaine HCl 5 ml PO 01/22/20 06:34 1 each ONETIME ONE Administration Sodium Chloride 1,000 mls @ 999 mls/hr 01/22/20 06:33 01/22/20 07:03 Normal Saline IV 01/22/20 07:33 999 mls/hr .Bolus ONE Administration Iopamidol 100 ml 01/22/20 07:33 01/22/20 07:34 Isovue Multipack-370 (76%) IVPUSH 01/22/20 07:34 100 ml ONETIME STA Administration Ondansetron HCl 4 mg 01/22/20 06:33 01/22/20 07:03 Zofran IVPUSH 01/22/20 06:34 4 mg ONETIME ONE Administration - Re-Assessments/Exams Free Text/Narrative Re-Assessment/Exam: 01/22/20 09:05 Patient is sleeping comfortably in no acute distress on reassessment. I woke her up to discuss final results. She reports her abdominal pain is now resolved. Discussed lab and CT scan results in no acute findings to account for her pain. Patient requested to get up and go to the bathroom. I did walk her to the bathroom, she was able to walk to the bathroom without any distress. Will refer for follow-up. On reexamination, the patient has no abdominal tenderness. No rebound or guarding. Departure - Departure Time of Disposition: 09:14 Sepsis Event Note (ED) - Focused Exam Vital Signs: Vital Signs Temp Pulse Resp BP Pulse Ox 01/22/20 06:14 96 F L 93 17 114/90 97
[2020-01-22] MEDS: Alum Hydrox/Mag Hydrox/Simeth 15 ML, Lidocaine 2% 5 ML PO ONE ×4 (07:03→07:04)
[2020-01-22 07:29] LABS: BLOOD UREA NITROGEN,BUN 13 mg/dL (7.0-18.0); CARBON DIOXIDE,CO2 24.8 mmol/L (21.0-32.0); CHLORIDE,CL 102 mmol/L (98-107); GLUCOSE RANDOM 120 mg/dL (74-106); LIPASE 120 U/L (73-393); POTASSIUM,K 3.9 mmol/L (3.5-5.1); SODIUM,NA 135 mmol/L (136-145)
[2020-01-22] MEDS ORDERED: Iopamidol 755 MG/ML 500 ML Multipack Bottle IVPUSH STA (07:33)
--- NOTE | 2020-01-22 08:20 | CT ---
Indication: Abdominal pain. Nausea. Technique: A CT volumetric acquisition was performed of the abdomen and pelvis during intravenous infusion of 100 cc of Isovue 370 nonionic intravenous contrast. Comparison: None available Findings: The lung bases are clear. Patient`s liver and spleen demonstrate normal size and uniform enhancement. There is no evidence of mass or inflammation within the pancreas. The gallbladder is been resected. The bile ducts are normal in size. The adrenal glands have normal morphology. There is normal symmetric uniform enhancement of both kidneys. There is a tiny 1 mm calculus within the mid left kidney on image 48. There is no evidence of retroperitoneal hemorrhage or lymphadenopathy. The appendix is visualized in the right lower quadrant and appears normal. There is no evidence of inflammation or obstruction within the small intestine or colon. The uterus and left ovary appear normal. There is a dermoid cyst within the right ovary which measures 3.5 x 2.9 cm in size. There is a mixture of macroscopic fat, soft tissue and focus of calcification within the dermoid cyst. There is no evidence of inflammation within the adjacent tissue planes. There is no evidence of free fluid in the cul-de-sac. Impression: No acute process identified. Incidentally noted is a 3.5 cm dermoid cyst of the right ovary. Left nephrolithiasis. Please note that all CT scans at this facility use dose modulation, iterative reconstruction, and/or weight-based dosing when appropriate to reduce radiation dose to as low as reasonably achievable. Dictated by David Castillo MD @ Jan 22 2020 8:08AM Signed by Dr. David Castillo @ Jan 22 2020 8:20AM
== END 2020-01-22 09:36 | disposition home or self-care (01) ==
LOC: MW.ED 06:04
DX: A05.9 Bacterial foodborne intoxication, unspecified (principal); D27.0 Benign neoplasm of right ovary; Z90.49 Acquired absence of other specified parts of digestive tract; Z98.51 Tubal ligation status; Z79.899 Other long term (current) drug therapy
CPT/HCPCS: 36415; 74177; 80053; 83690; 85025; 96374; 99284; A9270; J2405; J7030; Q9967

== ENCOUNTER 2020-03-19 06:15 | Emergency (ER) | payer SELFPAY ==
--- NOTE | 2020-03-19 06:49 | EDM.PDOC ---
<Robel Ricardo - Last Filed: 03/19/20 06:48> ED HPI GENERAL MEDICAL PROBLEM - General Chief Complaint: Abdominal Pain Stated Complaint: ABD PAIN AND NAUSEA Time Seen by Provider: 03/19/20 07:00 Bilateral Lower Abdomen Pain Score (Numeric/FACES): 2 - Related Data Allergies Allergy/AdvReac Type Severity Reaction Status Date / Time No Known Allergies Allergy Verified 03/19/20 06:31 Home Meds: Home Meds . 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, infection from tubal- had to have surgery to clean out infection Social & Family History - Family History Family Medical History: Noncontributory - Caffeine Use Caffeine Use: Reports: Coffee - Recreational Drug Use Recreational Drug Use: No Departure - Departure Disposition: Home, Self-Care 01 Clinical Impression: Bilateral lower abdominal pain, Nausea without vomiting, Concern about STD in female without diagnosis - Discharge Information Instructions: Nausea, Adult, Abdominal Pain, Adult, [id number] Referrals: [facility] [Provider Group] - 1 Week (For follow-up of your abdominal pain if it is not improving.) Forms: ED Department Discharge Additional Instructions: You were seen in the emergency department for lower abdominal pain, nausea, and concern for a sexually transmitted disease. Your vital signs are reassuring and I have a low suspicion for an intra- abdominal infection including appendicitis. We did discuss obtaining blood work and a CT scan and you declined these tests. We did send off swabs for STDs, these will take several days to come back. You were given antibiotics to treat gonorrhea and chlamydia. Your HIV testing is negative. Your bacterial vaginosis test was positive but you do not have discharge on examination, so I would not treat this with antibiotics and this can be re- evaluated by your MANAGING MEMBER doctor at your follow-up appointment. For constipation you can take [id number] MiraLAX or milk of magnesia as directed. I also recommend drinking plenty of fluids and taking a fiber supplement such as Metamucil. Warning signs to come back to the ER include worsening abdominal pain, abdominal swelling, fever, chills, repeated diarrhea or vomiting, bloody vomit or bloody bowel movements, vaginal bleeding, or any other new or concerning symptoms. Please follow-up with your primary doctor in the next week for reevaluation of your symptoms if they have not gone away. From what you are telling me it sounds like you have an ovarian cyst and this needs to be followed up by a assembler tester (MANAGING MEMBER) in the next few weeks, it sounds like you are already planning to do this and I agree with this plan. Please return the emergency department immediately if your symptoms worsen or if you feel worse. Thank you for choosing the [facility] emergency department in [place] for your medical needs today. It was a pleasure caring for you. The following information is given to patients seen in the emergency department who are being discharged. This information is to outline your options for follow-up care. We provide all patients seen in our emergency department with a follow-up referral. The need for follow-up, as well as the timing and circumstances, are variable depending upon the specifics of your emergency department visit. If you don't have a primary care physician on staff, we will provide you with a referral. We always advise you to contact your personal physician following an emergency department visit to inform them of the circumstance of the visit and for follow-up with them and/or the need for any referrals to a consulting specialist. The emergency department will also refer you to a specialist when appropriate. This referral assures that you have the opportunity for follow-up care with a specialist. All of these measure are taken in an effort to provide you with optimal care, which includes your follow-up. Under all circumstances we always encourage you to contact your private physician who remains a resource for coordinating your care. When calling for follow-up care, please make the office aware that this follow-up is from your recent emergency room visit. If for any reason you are refused follow-up, please contact the [facility] Emergency Department at and asked to speak to the emergency department charge nurse. If you do not have a primary care physician that is caring for you, you can contact these clinics below to set up an appointment to establish care: [facility] - Primary Care [address], [place] [address] [facility] [address] [place] [id number] Sepsis Event Note (ED) - Evaluation Sepsis Screening Result: No Definite Risk <Fernando Campbell - Last Filed: 03/19/20 09:02> ED HPI GENERAL MEDICAL PROBLEM - General Source of Information: Reports: Patient, Old Records History Limitations: Reports: No Limitations - History of Present Illness INITIAL COMMENTS - FREE TEXT/NARRATIVE: 39-year-old female past medical history of cholecystectomy, tubal ligation, left-sided oophorectomy, partial right nephrectomy, treated gonorrhea infection presenting with abdominal pain, nausea, and concern for STI exposure. Patient reports that last night she received a text message from 1 of her sexual partners, they were concerned about possible STI symptoms and recommended that she get tested. Patient has intermittently experienced some whitish discharge last night, none today. She is also complained of some mild bilateral lower abdominal pain since last night, this waxes and wanes but does not totally go away. It did improve with a bowel movement and she is concerned that she might be constipated. She also reports some mild intermittent nausea but no vomiting. Denies fever, chills, emesis, hematemesis, diarrhea, bloody bowel movements, dysuria, hematuria, urinary frequency, flank pain, or genital lesions. Does have a prior history of treated gonorrhea but no history of HIV, syphilis, or chlamydia. ROS: A 10-point review of systems was negative, except as noted in the HPI (or in the ROS section of this note). Past medical history: Reviewed, no additional pertinent history. Surgical history: Reviewed in system, no additional pertinent history. Social history: Reviewed in system, no additional pertinent history. Family history: Reviewed in system, no additional pertinent history. PHYSICAL EXAM Vital signs reviewed. Nursing notes reviewed. Constitutional: Awake, alert, non-distressed. Head: Normocephalic, atraumatic. Eyes: EOMI, conjunctiva normal, no discharge, no scleral icterus. Ears, Nose, Throat: External ears and nose normal, moist oral mucosa. Cardiovascular: 2+ radial pulse, capillary refill less than 2 seconds. Pulmonary: normal work of breathing, no accessory muscle use. Abdomen/GI: Soft, totally nontender, nondistended, no guarding or rigidity, no m asses. No CVA tenderness. (Female) Exam: Normal External Exam, Vaginal Bleeding (Scant). No: Cervical Lesions, Vaginal Discharge, Vaginal Lesions, Vaginal Tears. Chaperoned by Samantha García RN. Musculoskeletal: No deformities. Integumentary: Appropriate color for ethnicity, warm, dry, no pallor or jaundice, no rash. Neurologic: Alert, answering questions appropriately, normal speech, no facial droop, moving all extremities well. Psychiatric: Appropriate mood and affect, normal thought process. ED ROS GENERAL - Review of Systems Review Of Systems: See Below ED EXAM, GENERAL - Physical Exam Exam: See Below (Female) Exam: Normal External Exam, Vaginal Bleeding (Scant). No: Cervical Lesions, Vaginal Discharge, Vaginal Lesions, Vaginal Tears Course - Vital Signs Text/Narrative:: Patient hemodynamically stable, afebrile, well-appearing, looks nontoxic. Differential diagnosis includes but is not limited to: STI, PID, chlamydia, gonorrhea, candidal infection, UTI, pyelonephritis, less likely appendicitis or intra-abdominal infection, less likely endometritis, less likely ovarian cyst or torsion, less likely TOA, constipation, and many others Patient hemodynamically stable, well-appearing, with a totally nontender abdomen. Abdomen is soft and nondistended. Patient appears nontoxic. Low suspicion for intra-abdominal surgical emergency such as appendicitis, endometritis, ovarian torsion, TOA, sepsis, etc. Did not feel that routine laboratory testing and CT imaging would be of much utility at this point given these facts and patient declined my offer of laboratory testing and CT imaging. Urinalysis is not concerning for infection, patient is afebrile, no flank pain to suggest pyelonephritis. Pain is quite mild and bilateral across the lower abdomen, which makes ovarian cyst or torsion, appendicitis, kidney stone, or diverticulitis much less likely. Performed pelvic examination which was externally normal, no genital lesions noted, did note some very scant blood at the cervical os. Did send off swabs for gonorrhea and chlamydia, also performed routine HIV (negative) and syphilis blood testing (send-out) per patient request. Patient desires empiric treatment with IM ceftriaxone and p.o. azithromycin. Yanna testing negative, Gardnerella DNA probe positive but low suspicion for BV given absence of vaginal discharge noted on pelvic examination so would not treat at this point (only 1/4 Bandar criteria). Can pursue vaginal pH/amine testing with OB as an outpatient if they deem necessary. Trichomonas probe negative. Plan: Patient is stable to discharge home with outpatient primary care clinic follow-up. Patient is concerned that she may be constipated and we discussed treatment with [id number] therapy such as milk of magnesia, MiraLAX, fiber supplementation, and plenty of fluids. Patient does have a likely ovarian cyst/mass diagnosed on prior visits and she understands that she needs to follow-up with an coil machine supervisor for further work-up and treatment of this and she plans to do this. Strict emergency department return precautions were provided, patient indicated understanding. All questions were answered prior to departure. Discharged in good condition. Last Recorded V/S: Last Vital Signs Temp 36.4 C 03/19/20 06:21 Pulse 79 03/19/20 07:47 Resp 16 03/19/20 07:47 BP 140/68 03/19/20 07:47 Pulse Ox 100 03/19/20 07:47 - Orders/Labs/Meds Orders: Active Orders 24 hr Category Date Time Status Pelvic Exam, Set Up [RC] ASDIRECTED Care 03/19/20 07:17 Active CHLAMYDIA AND GONORRHEA BY TMA Stat Lab 03/19/20 07:51 Received RPR (SYPHILIS SERO) W/ RFLX [REF] Stat Lab 03/19/20 07:30 Received Labs: Laboratory Tests 03/19/20 03/19/20 03/19/20 Range/Units 06:30 06:30 07:30 Urine Color YELLOW Urine Appearance CLEAR Urine pH 6.0 (5.0-8.0) Ur Specific [place] >= 1.030 (1.001-1.035) Urine Protein NEGATIVE (NEGATIVE) mg/dL Urine Glucose (UA) NEGATIVE (NEGATIVE) mg/dL Urine Ketones NEGATIVE (NEGATIVE) mg/dL Urine Occult Blood NEGATIVE (NEGATIVE) Urine Nitrite NEGATIVE (NEGATIVE) Urine Bilirubin NEGATIVE (NEGATIVE) Urine Urobilinogen 0.2 (<2.0) EU/dL Ur Leukocyte Esterase NEGATIVE (NEGATIVE) Urine HCG, Qual NEGATIVE (NEGATIVE) Yanna species DNA (NEGATIVE) Gardnerella DNA Probe (NEGATIVE) HIV 1&2 Ag/Ab, 4th Gen < 0.1 (<1.0) INDEX Trichomonas DNA Probe (NEGATIVE) 03/19/20 Range/Units 07:51 Urine Color Urine Appearance Urine pH (5.0-8.0) Ur Specific [place] (1.001-1.035) Urine Protein (NEGATIVE) mg/dL Urine Glucose (UA) (NEGATIVE) mg/dL Urine Ketones (NEGATIVE) mg/dL Urine Occult Blood (NEGATIVE) Urine Nitrite (NEGATIVE) Urine Bilirubin (NEGATIVE) Urine Urobilinogen (<2.0) EU/dL Ur Leukocyte Esterase (NEGATIVE) Urine HCG, Qual (NEGATIVE) Yanna species DNA NEGATIVE (NEGATIVE) Gardnerella DNA Probe POSITIVE H (NEGATIVE) HIV 1&2 Ag/Ab, 4th Gen (<1.0) INDEX Trichomonas DNA Probe NEGATIVE (NEGATIVE) Meds: Medications Discontinued Medications Generic Name Dose Route Start Last Admin Trade Name Freq PRN Reason Stop Dose Admin Azithromycin 1,000 mg 03/19/20 07:21 03/19/20 07:38 Zithromax PO 03/19/20 07:22 1,000 mg Q24H ONE Administration Ceftriaxone Sodium Confirm 03/19/20 07:33 03/19/20 07:45 Rocephin Administered 03/19/20 07:34 Not Given Dose 250 mg .ROUTE .STK-MED ONE Ceftriaxone Sodium 250 mg/ 1 mls @ 1 mls/sec 03/19/20 07:20 03/19/20 07:45 Lidocaine HCl IM 03/19/20 07:21 1 mls/sec ONETIME ONE Administration Ondansetron HCl 4 mg 03/19/20 07:18 03/19/20 07:38 Zofran Odt PO 03/19/20 07:19 4 mg ONETIME ONE Administration Departure - Departure Time of Disposition: 08:03 Condition: Good - Discharge Information *PRESCRIPTION DRUG MONITORING PROGRAM REVIEWED*: Not Applicable *COPY OF PRESCRIPTION DRUG MONITORING REPORT IN PATIENT WIN: Not Applicable Sepsis Event Note (ED) - Focused Exam Vital Signs: Vital Signs Temp Pulse Resp BP Pulse Ox 03/19/20 07:47 79 16 140/68 100 03/19/20 06:21 36.4 C 81 14 130/55 L 97 - My Orders Last 24 Hours: My Active Orders 03/19/20 07:17 Pelvic Exam, Set Up [RC] ASDIRECTED 03/19/20 07:30 RPR (SYPHILIS SERO) W/ RFLX [REF] Stat 03/19/20 07:51 CHLAMYDIA AND GONORRHEA BY TMA Stat - Assessment/Plan Last 24 Hours: My Active Orders 03/19/20 07:17 Pelvic Exam, Set Up [RC] ASDIRECTED 03/19/20 07:30 RPR (SYPHILIS SERO) W/ RFLX [REF] Stat 03/19/20 07:51 CHLAMYDIA AND GONORRHEA BY TMA Stat
[2020-03-19] MEDS ORDERED: Ondansetron 4 MG Tab.DIS PO ONE (07:18)
[2020-03-19] MEDS ORDERED: cefTRIAXone 250 MG in Lidocaine 1% 1 ML IM ONE (07:20)
[2020-03-19] MEDS ORDERED: Azithromycin 250 MG Tab PO ONE (07:21)
[2020-03-19] MEDS: cefTRIAXone 250 MG Vial ONE ×2 (07:39→07:45)
[2020-03-22 12:07] LABS: C.TRACHOMATIS BY TMA Positive (Negative); N.GONORRHOEAE BY TMA Negative (Negative)
== END 2020-03-19 09:04 | disposition home or self-care (01) ==
LOC: MW.ED 06:15
DX: R10.31 Right lower quadrant pain (principal); R10.32 Left lower quadrant pain; R11.0 Nausea; Z20.2 Contact with and (suspected) exposure to infections with a predominantly sexual mode of transmission; Z90.722 Acquired absence of ovaries, bilateral; Z90.49 Acquired absence of other specified parts of digestive tract
CPT/HCPCS: 81003; 81025; 86592; 87389; 87480; 87491; 87510; 87591; 87660; 96372; 99284; A9270; J0696; J2001; 36415; 99283